=== PATIENT | female | born 1940 | race Caucasian/White ===

== ENCOUNTER 2024-06-02 16:34 | Emergency (ER) | payer BC, MEDICARE, SELFPAY ==
--- NOTE | ~2024-06-02 | CT_ITS ---
CLINICAL HISTORY: fall with head strike CT head without contrast. COMPARISON: None FINDINGS: Scalp edema/hematoma overlying the bridge of the nose and left supraorbital region. The visualized paranasal sinuses are clear. The mastoid air cells are clear. No calvarial fracture. Atherosclerotic intracranial vasculature. No evidence for mass or mass effect. No intracranial hemorrhage or abnormal extra-axial fluid collection. The ventricles are proportional with the degree of mild global cerebral volume loss without evidence of hydrocephalus. Basilar cisterns are patent. There are periventricular areas of low attenuation compatible with mild white matter small vessel disease. Posterior fossa appears unremarkable. IMPRESSION: 1. No acute intracranial findings. This document has been electronically signed by: Elias Negrete MD on 06/02/2024 19:30:13
--- NOTE | ~2024-06-02 | CT_ITS ---
CLINICAL HISTORY: facial trauma CT maxillofacial without contrast. COMPARISON: None FINDINGS: Scalp edema/hematoma overlying the left supraorbital region and bridge of the nose. No evidence of injury to the bony orbits. Globes appear intact bilaterally. No postseptal or retrobulbar hematoma. Nasal bones appear intact. Nasal septum is midline. Paranasal sinuses are clear. Zygomatic process and pterygoid plates are intact. Temporomandibular joints are appropriately seated. Degenerative changes of the bilateral temporomandibular joints, iquj-jhyetxy-sdev-right. Mandible appears intact. Skull base fracture identified. Mastoid air cells are clear. Degenerative changes of the partially visualized cervical spine. Visualized intracranial structures are unremarkable. IMPRESSION: 1. Scalp edema/hematoma overlying the left supraorbital region and bridge of the nose. No evidence of injury to the underlying bones or orbital soft tissues. This document has been electronically signed by: Elias Negrete MD on 06/02/2024 19:32:49
--- NOTE | ~2024-06-02 | XR_ITS ---
CLINICAL HISTORY: trauma Four views of the left knee. COMPARISON: None FINDINGS: Subcutaneous tissue edema overlying the left knee. No suprapatellar joint effusion. Atherosclerotic vascular calcifications. Joint spaces are maintained. Osteophytes present along the medial and patellofemoral compartments. Visualized portions of the distal femur, patella, and proximal tibia and fibula appear intact. IMPRESSION: 1. Subcutaneous soft tissue edema overlying the anterior aspect of the knee. Underlying bones appear intact. This document has been electronically signed by: Elias Negrete MD on 06/02/2024 18:30:56
--- NOTE | ~2024-06-02 | CT_ITS ---
CLINICAL HISTORY: pain s p fall CT cervical spine without contrast. COMPARISON: None FINDINGS: Reversal of normal cervical lordosis. Vertebral body heights are maintained. Skull base and intracranial structures appear normal. Calcified plaque present at the carotid bulbs bilaterally. C2-C3: Facet joint arthrosis. Severe right neural foraminal narrowing. C3-C4: Anterior marginal osteophytes. Posterior disc osteophyte complex.Uncovertebral joint hypertrophy. Facet joint arthrosis. Severe left and mild right neural foraminal narrowing. C4-C5: Prominent anterior marginal osteophytes. Loss of disc space height. Posterior disc osteophyte complex. Uncovertebral joint hypertrophy. Moderate bilateral neural foraminal narrowing. C5-C6: Prominent anterior marginal osteophytes. Loss of disc space height. Posterior disc osteophyte complex. Uncovertebral joint hypertrophy. Severe left moderate right neural foraminal narrowing. C6-C7: Anterior marginal osteophytes. Loss of disc space height. Posterior disc osteophyte complex. Uncovertebral joint hypertrophy. Moderate left and mild right neural foraminal narrowing. IMPRESSION: 1. No evidence of acute injury to the cervical spine. 2. Reversal of the normal cervical lordosis. 3. Advanced multilevel cervical spondylosis. This document has been electronically signed by: Elias Negrete MD on 06/02/2024 19:28:48
--- NOTE | 2024-06-02 16:37 | ED.FALL ---
HPI - Fall General Chief Complaint: Fall Stated Complaint: fell [place] first [place] [employer] Time Seen by Provider: 06/02/24 16:46 Source: patient, RN notes reviewed and old records reviewed Mode of arrival: ambulatory Limitations: no limitations History of Present Illness ED Provider: Abel CHAPPELL Narrative: 83-year-old female with past medical history significant for coronary artery, hypertension presents for evaluation of a fall. Patient reports that she went to go grocery shopping. See the curb and when she went to step up, her foot got caught on the curb and she fell down to the ground. She hit her face and and left knee. She denied any prodrome of lightheadedness, dizziness, weakness prior to her fall. She did not lose consciousness. She complains of a mild headache She takes a baby aspirin daily but does not use any anticoagulation Related Data Allergies Allergy/AdvReac Type Severity Reaction Status Date / Time No Known Allergies Allergy Verified 06/02/24 16:42 Review of Systems Constitutional: Constitutional: Denies body ache(s), Denies chills, Denies fever(s), Denies frequent falls and Reports headache(s) ENT: Denies vertigo, Denies dizziness, Reports headache(s) and Reports neck pain Cardiovascular: Cardiovascular: Denies chest pain and Denies dyspnea Respiratory: Respiratory: Denies cough and Denies dyspnea Gastrointestinal: Gastrointestinal: Denies abdominal pain, Denies nausea and Denies vomiting Musculoskeletal: Musculoskeletal: Denies back pain, Reports arthralgias, Reports joint swelling, Denies limited range of motion and Reports neck pain Neurologic: Denies vertigo, Denies dizziness, Denies frequent falls and Reports headache(s) Psychiatric: Psychiatric: Denies anxiety PMFSH Social History Social History Smoked in Last 30 Days: No Use of substances other than those prescribed or required for medical reasons: No Advance Directives: No Advance Directives Information Provided: No Physical Exam Vital Signs: Vital Signs: Last Vital Signs Temp 97.6 F 06/02/24 16:38 Pulse 88 06/02/24 16:38 Resp 16 06/02/24 16:38 BP 154/81 H 06/02/24 16:38 Pulse Ox 98 06/02/24 16:38 O2 Del Method Room Air 06/02/24 16:38 BMI result Body Mass Index 31.9 Const: General: healthy appearing, comfortable, no acute distress, alert and awake Nutritional Appearance: well nourished Orientation/consciousness: patient oriented x3 HEENT: Other: Patient has edema over the bridge of the nose with a small abrasion. No deep lacerations. There is ecchymosis extending laterally to both periorbital regions. No septal hematoma. Eyes: Eyelids: Yes eyelids normal Conjunctivae: conjunctivae normal Sclerae: sclerae normal Corneas: corneas normal Pupils: Equal, round and reactive pupils present EOM: EOMs intact bilaterally Neck: Other: Patient is in a C-collar Neck: No full ROM Resp: Effort & Inspection: normal respiratory effort, able to speak in complete sentences and not labored Skin: General skin exam: elasticity normal Neuro: General: patient oriented x3 Cranial nerves: Yes CN's II-XII intact bilaterally, Yes Equal, round and reactive pupils present and Yes Bilaterally intact EOM present Cognition (Neuro): normal cognition Course Course Course Narrative: This is a Rapid Medical Examination (RME) performed by Kemal Marquez PA-C in triage. Full HPI, ROS, assessment and treatment plan per primary provider in the Main ED. 83 y/o female with history of HTN, CAD s/p stent, fibromylagia, osteoarthritis, pre-DM who presents to the ER for evaluation after she tripped outside of [employer] in the [place] just prior to arrival. No LOC but felt dizzy afterward. No dizziness or chest pain prior to falling. No history of frequent falls. c/o facial pain, bilateral neck pain with movement, hand pain and left knee pain. Plan: CT head, face and c-spine. placed in cervical collar in triage Medications Administered Discontinued Medications Generic Name Dose Route Start Last Admin Trade Name Freq PRN Reason Stop Dose Admin Acetaminophen 650 mg 06/02/24 17:17 06/02/24 17:20 Acetaminophen 325 Mg Tablet PO 06/02/24 17:18 650 mg ONCE ONE Administration Medical Decision Making Medical Decision Making [facility] Narrative: 83-year-old female presents for evaluation after a fall. She was with her daughter and this was a witnessed fall. The patient accidentally missed the step up to the curb and ended up falling onto the ground. There was no loss of consciousness. We will get a CT scan of her brain, cervical spine, facial bones and x-ray of the left knee. Differential Diagnosis Differential Diagnoses: The differential diagnosis associated with the presentation includes Contusion Abrasion Nasal fracture Fracture Muscle strain Contusion Radiology Impression Discussion of test interpretation with radiology: I have reviewed the radiologist's reading. Radiologist Impression: FINDINGS: Scalp edema/hematoma overlying the left supraorbital region and bridge of the nose. No evidence of injury to the bony orbits. Globes appear intact bilaterally. No postseptal or retrobulbar hematoma. Nasal bones appear intact. Nasal septum is midline. Paranasal sinuses are clear. Zygomatic process and pterygoid plates are intact. Temporomandibular joints are appropriately seated. Degenerative changes of the bilateral temporomandibular joints, [id number]-right. Mandible appears intact. Skull base fracture identified. Mastoid air cells are clear. Degenerative changes of the partially visualized cervical spine. Visualized intracranial structures are unremarkable. IMPRESSION: 1. Scalp edema/hematoma overlying the left supraorbital region and bridge of the nose. No evidence of injury to the underlying bones or orbital soft tissues. This document has been electronically signed by: Elias Negrete MD on 06/02/2024 19:32:49 FINDINGS: Scalp edema/hematoma overlying the bridge of the nose and left supraorbital region. The visualized paranasal sinuses are clear. The mastoid air cells are clear. No calvarial fracture. Atherosclerotic intracranial vasculature. No evidence for mass or mass effect. No intracranial hemorrhage or abnormal extra-axial fluid collection. The ventricles are proportional with the degree of mild global cerebral volume loss without evidence of hydrocephalus. Basilar cisterns are patent. There are periventricular areas of low attenuation compatible with mild white matter small vessel disease. Posterior fossa appears unremarkable. IMPRESSION: 1. No acute intracranial findings. This document has been electronically signed by: Elias Negrete MD on 06/02/2024 19:30:13 FINDINGS: Reversal of normal cervical lordosis. Vertebral body heights are maintained. Skull base and intracranial structures appear normal. Calcified plaque present at the carotid bulbs bilaterally. C2-C3: Facet joint arthrosis. Severe right neural foraminal narrowing. C3-C4: Anterior marginal osteophytes. Posterior disc osteophyte complex.Uncovertebral joint hypertrophy. Facet joint arthrosis. Severe left and mild right neural foraminal narrowing. C4-C5: Prominent anterior marginal osteophytes. Loss of disc space height. Posterior disc osteophyte complex. Uncovertebral joint hypertrophy. Moderate bilateral neural foraminal narrowing. C5-C6: Prominent anterior marginal osteophytes. Loss of disc space height. Posterior disc osteophyte complex. Uncovertebral joint hypertrophy. Severe left moderate right neural foraminal narrowing. C6-C7: Anterior marginal osteophytes. Loss of disc space height. Posterior disc osteophyte complex. Uncovertebral joint hypertrophy. Moderate left and mild right neural foraminal narrowing. IMPRESSION: 1. No evidence of acute injury to the cervical spine. 2. Reversal of the normal cervical lordosis. 3. Advanced multilevel cervical spondylosis. This document has been electronically signed by: Elias Negrete MD on 06/02/2024 19:28:48 Discharge Plan Discharge Clinical Impression: Contusion of face Patient Disposition: Home, Self-Care Instructions: Facial Contusion (ED) Additional Instructions: Your CT scans did not show any broken bones. You do have a hematoma above your left eye and to your knee Apply ice every 4 hours for 10-15 minutes You may use Tylenol or ibuprofen for pain Follow-up with your primary doctor, return for new or worsening symptoms Print Language: Guinean
[2024-06-02 16:38] VITALS: BP 154/81; PULSE 88; RESP 16; TEMP 36.4; O2SAT 98; BMI 31.9
[2024-06-02] MEDS: Acetaminophen 325 MG TABLET 650 MG PO (17:20)
[2024-06-02 20:00] VITALS: BP 125/70; PULSE 73; RESP 18; TEMP 36.6; O2SAT 96
[2024-06-02 23:27] VITALS: BP 125/70; PULSE 73; RESP 18; TEMP 36.6; O2SAT 96
== END 2024-06-02 20:20 | disposition home or self-care (01) ==
PROVIDERS: Emergency Provider Emergency Medicine
DX: S00.83XA Contusion of other part of head, initial encounter (principal); S00.31XA Abrasion of nose, initial encounter; M54.2 Cervicalgia; W10.1XXA Fall (on)(from) sidewalk curb, initial encounter; M25.562 Pain in left knee; Y93.01 Activity, walking, marching and hiking; Y92.480 Sidewalk as the place of occurrence of the external cause; Y99.9 Unspecified external cause status
CPT/HCPCS: 70450; 70486; 72125; 73562; 99284

== ENCOUNTER → 2024-06-02 17:17 | Outpatient (BNV) | payer BC, MEDICARE, SELFPAY | PROVIDERS: Emergency Provider Emergency Medicine; Visit Provider Radiology Diagnostic Radiology | DX: M54.2 Cervicalgia (principal); M47.812 Spondylosis without myelopathy or radiculopathy, cervical region; S00.83XA Contusion of other part of head, initial encounter; M25.562 Pain in left knee; W01.0XXA Fall on same level from slipping, tripping and stumbling without subsequent striking against object, initial encounter | CPT/HCPCS: 70450; 70486; 72125; 73562 ==

== ENCOUNTER 2024-06-04 19:09 | Emergency (ER) | payer BC, MEDICARE, SELFPAY ==
--- NOTE | ~2024-06-04 | CT_ITS ---
CLINICAL HISTORY: trauma CT left knee without intravenous contrast Comparison: CR - XR KNEE LT 3V - 06/02/24 17:29 EDT Findings: Anteromedial subcutaneous hematoma measuring 3.5 x 1.6 x 3.3 cm. Infrapatellar subcutaneous edema. Tricompartmental osteoarthritis. No joint effusion or lipohemarthrosis. No acute fracture or dislocation. Vascular calcifications. IMPRESSION: 1. No acute osseous injury. 2. Anteromedial subcutaneous hematoma measuring 3.5 x 1.6 x 3.3 cm with infrapatellar subcutaneous edema. This document has been electronically signed by: Phillip Landeros MD on 06/04/2024 22:22:17
[2024-06-04 19:19] VITALS: BP 122/84; PULSE 84; O2SAT 97
[2024-06-04 19:20] VITALS: BP 145/68; PULSE 76; RESP 16; TEMP 36.7; O2SAT 97; BMI 32.5
[2024-06-04 20:38] VITALS: BP 121/67; PULSE 75; RESP 18; TEMP 36.7; O2SAT 95
[2024-06-04] MEDS: oxyCODONE HCl Immed Release 5 MG TABLET PO (20:38)
--- NOTE | 2024-06-04 22:02 | ED_ITS ---
HPI - General Adult General Chief complaint: Extremity Problem Stated complaint: fall, knee pain Time Seen by Provider: 06/04/24 19:19 Source: patient, RN notes reviewed and old records reviewed Mode of arrival: EMS Limitations: no limitations History of Present Illness ED Provider: Abel CHAPPELL narrative: 83-year-old female presents for evaluation of left knee pain. Patient was seen here 2 days ago after tripping and falling over a sidewalk. She had a CT scan of her brain and cervical spine, x-ray of the left knee all of the imaging was unremarkable for traumatic injuries. The patient was able to ambulate even this morning. However she reports that her pain is severe, 10/10 and worse with any kind of movement denies any additional falls or trauma Related Data Previous Rx's ?Medication ?Instructions ?Recorded morphine 15 mg immediate release 15 mg PO Q6H PRN severe pain 06/05/24 tablet (scale score 7-10) #12 tabs Allergies Allergy/AdvReac Type Severity Reaction Status Date / Time No Known Allergies Allergy Verified 06/04/24 19:22 Review of Systems Constitutional: Constitutional: Denies body ache(s), Denies chills, Denies fever(s) and Denies headache(s) ENT: Denies headache(s) Musculoskeletal: Musculoskeletal: Reports arthralgias, Reports joint swelling and Reports limited range of motion Integumentary/Breasts: Skin/Breast: Denies rash Neurologic: Denies headache(s) PMFSH Social History Social History Smoked in Last 30 Days: No Use of substances other than those prescribed or required for medical reasons: No Advance Directives: No Advance Directives Information Provided: No Physical Exam ED Vital Signs: Vital Signs - 24 hr 06/04/24 19:20 06/04/24 20:38 06/04/24 23:57 Temperature 98.1 F 98.1 F Pulse Rate 76 75 65 Respiratory Rate 16 18 18 Blood Pressure 145/68 H 121/67 114/65 Pulse Oximetry 97 95 97 Oxygen Delivery Method Room Air Room Air Room Air BMI result Body Mass Index 32.5 Const General: healthy appearing, comfortable, no acute distress, alert and awake Nutritional Appearance: well nourished Orientation/consciousness: patient oriented x3 HENMT Other: patient has raccoon eyes Eyes Eyelids: Yes eyelids normal Conjunctivae: conjunctivae normal Sclerae: sclerae normal Corneas: corneas normal Pupils: Equal, round and reactive pupils present EOM: EOMs intact bilaterally Neck Neck: Yes full ROM Resp Effort & Inspection: normal respiratory effort, able to speak in complete sentences and not labored Skin General skin exam: elasticity normal Neuro General: patient oriented x3 Cranial nerves: Yes Equal, round and reactive pupils present and Yes Bilaterally intact EOM present Cognition (Neuro): normal cognition Extrem Other: there is moderate edema to the left knee with surrounding ecchymosis. No deep wounds or lacerations. The patient is exquisitely tender mostly in his suprapatellar region. She was reduced range of motion Medications Administered Discontinued Medications Generic Name Dose Route Start Last Admin Trade Name Freq PRN Reason Stop Dose Admin Lidocaine HCl 10 ml 06/04/24 23:17 06/05/24 00:41 Lidocaine Hcl 1 % Mpf 5 Ml Vial INFILTRATI 06/04/24 23:18 10 ml ONCE ONE Administration Morphine Sulfate 15 mg 06/05/24 00:21 06/05/24 00:38 Morphine Sulfate Immed Release 15 Mg Tablet PO 06/05/24 00:22 15 mg ONCE ONE Administration Oxycodone HCl 5 mg 06/04/24 20:22 06/04/24 20:38 Oxycodone Hcl Immed Release 5 Mg Tablet PO 06/04/24 20:23 5 mg ONCE ONE Administration Procedures Procedure Narrative Procedure Narrative: patient was identified, left knee was prepped and draped in his sterile fashion. I used 5 cc of 1% lidocaine to locally anesthetize the left knee. I then inserted an 18 gauge needle and aspirated. Approximately 4 cc of bloody aspirate the medial aspect of the left knee. the patient tolerated the procedure well, there were no complications. Medical Decision Making Medical Decision Making [facility]DM Narrative: 83-year-old female presents for evaluation of continued and worsening left knee pain after a fall 2 days ago. She had no additional trauma. She was obvious ecchymosis. She has been able to walk up until today. Plan for CT scan to evaluate for occult fracture. Differential Diagnosis Differential Diagnoses: The differential diagnosis associated with the presentation includes Left knee pain Contusion Tibial plateau fracture Patellar fracture Ligamentous injury Radiology Impression Discussion of test interpretation with radiology: I have reviewed the radiologist's reading. Radiologist Impression: Findings: Anteromedial subcutaneous hematoma measuring 3.5 x 1.6 x 3.3 cm. Infrapatellar subcutaneous edema. Tricompartmental osteoarthritis. No joint effusion or lipohemarthrosis. No acute fracture or dislocation. Vascular calcifications. IMPRESSION: 1. No acute osseous injury. 2. Anteromedial subcutaneous hematoma measuring 3.5 x 1.6 x 3.3 cm with infrapatellar subcutaneous edema. This document has been electronically signed by: Phillip Landeros MD on 06/04/2024 22:22:17 Discharge Plan Discharge Clinical Impression: Hematoma of left knee region Patient Disposition: Home, Self-Care Instructions: Contusion in Adults (ED) Additional Instructions: you may use ibuprofen / Tylenol as needed for pain. The CT scan did not show any significant traumatic injuries to your left knee. You do have a hematoma. This was partially aspirated I recommend that you follow-up with orthopedics at the number provided. You may benefit from an outpatient MRI you may use morphine for severe breakthrough pain. This may make you drowsy, do not drink alcohol or drive after taking it Prescriptions: New morphine 15 mg tablet 15 mg PO Q6H PRN (Reason: severe pain (scale score 7-10)) Qty: 12 0RF Rx Instructions: Partial Fill upon patient request. Referrals: Misha Pierre MD [Physician] - (left knee pain) Print Language: Tamazight
[2024-06-04 23:57] VITALS: BP 114/65; PULSE 65; RESP 18; O2SAT 97
[2024-06-05] MEDS: Morphine Sulfate Immed Release 15 MG TABLET PO (00:38)
[2024-06-05] MEDS: Lidocaine HCl 1 % MPF 5 ML VIAL 10 ML INFILTRATI (00:41)
[2024-06-05 01:24] VITALS: BP 97/61; PULSE 71; RESP 16; TEMP 36.3; O2SAT 97
[2024-06-05 01:38] VITALS: BP 97/61; PULSE 71; RESP 16; TEMP 36.3; O2SAT 97
== END 2024-06-05 01:40 | disposition home or self-care (01) ==
PROVIDERS: Emergency Provider Emergency Medicine; PCP Internal Medicine
DX: S80.02XA Contusion of left knee, initial encounter (principal); W19.XXXA Unspecified fall, initial encounter; Y93.9 Activity, unspecified; Y92.9 Unspecified place or not applicable; Y99.9 Unspecified external cause status; M25.562 Pain in left knee
CPT/HCPCS: 73700; 99284; J2003

== ENCOUNTER → 2024-06-04 20:22 | Outpatient (BNV) | payer BC, MEDICARE, SELFPAY | PROVIDERS: PCP Internal Medicine; Visit Provider Radiology Diagnostic Radiology | DX: M25.562 Pain in left knee (principal); S80.02XA Contusion of left knee, initial encounter | CPT/HCPCS: 73700 ==

== ENCOUNTER 2024-06-20 13:00 | Outpatient (AMB) | payer BC, MEDICARE, SELFPAY ==
--- NOTE | 2024-06-20 13:03 | MHC.OFFVIS ---
Vital Signs 06/20/24 13:21 Height 5 ft 3 in Weight 184 lb BMI 32.6 Handedness Right Intake Visit Reasons: ED - left knee swelling, DOI 06/02/24 Intake Note: Harper is a 84 year old female who presents today for a evaluation of her left knee swelling, DOI 06/02/24. Patient reports she tripped and fell over a sidewalk. She had a sharp stabbing pain in her knee. Patient reports she is feeling some tightness and numbness since the injury. She states that her pain is focused on top of the knee. Hx of drainage at the ED which gave her relief on 06/04/24. IMPRESSION (x ray): 1. Subcutaneous soft tissue edema overlying the anterior aspect of the knee. Underlying bones appear intact. IMPRESSION (CT scan): 1. No acute osseous injury. 2. Anteromedial subcutaneous hematoma measuring 3.5 x 1.6 x 3.3 cm with infrapatellar subcutaneous edema. Allergies No Known Allergies Allergy (Verified 06/20/24 13:09) HPI HPI ED - left knee swelling, DOI 06/02/24: Details: The patient is an 84-year-old female presenting for a follow-up visit after sustaining a left knee injury due to a trip and fall on 06/02/24 landing directly on the knee. She also sustained an abrasion over the anterior aspect of the patella. Following this traumatic event, she went to the emergency department where imaging showed no acute fractures or dislocations, but an anterior medial subcutaneous hematoma was identified. An aspiration at that visit yielded only a small volume of bloody aspirate. Despite this intervention, the patient experienced severe and sharp knee pain within two days, returning to the emergency department. The knee hematoma eventually became infected, and her primary care doctor started her on Augmentin, which has been effective as the infection is showing signs of resolution. The patient expresses that the hematoma has reduced in size but remains noticeable, and the area's redness, although decreased, persists. She reports adhering to her primary physician's advice regarding local care of the hematoma. [facility] Social History (Updated 06/20/24 @ 13:20 by Main Morelos) Alcohol intake: current Alcohol intake frequency: holidays/special occasions only Alcohol type: wine Patient Tobacco Use Status: Never used Tobacco Current occupational status: retired Review of Systems Const All systems reviewed & are unremarkable except as noted in HPI and below Physical Exam Vital Signs: BMI result Body Mass Index 32.6 Const General: cooperative, healthy appearing and no acute distress Resp Effort & Inspection: normal respiratory effort and able to speak in complete sentences Cardio Peripheral pulses: Peripheral pulses 2+ throughout Skin Lesions: no lesions Rashes: no rashes Extrem Other: Left knee: Moderate hematoma. Abrasion over the anterior aspect of the patella has healthy eschar tissue. Mild erythema surrounds the area. Weeping serosanguineous fluid. No evidence of infection at this time. No tenderness to palpation along the medial or lateral joint lines. Full knee extension and flexion. NVI. Assessment & Plan Assessment & Plan (1) Contusion of knee, left: Code(s): S80.02XA - Contusion of left knee, initial encounter Category: Medical Plan The treatment plan for the patient?s left knee hematoma centers on observation and symptom management since imaging showed no fracture. The previously infected hematoma, successfully treated with Augmentin, has improved. With antibiotic therapy concluding today, ongoing watchfulness for infection reoccurrence is essential. Continued local care of the knee involving soap and water cleansing is recommended. Follow-up is planned for one week to assess the knee's recovery and determine if any adjustments to care are needed. The patient appreciated the information provided and consented to return for the follow-up as discussed. I also advised her to urgently contact my office if symptoms worsen. X-rays of the left knee which were obtained in the emergency department on 06/02/2024 were reviewed by me, Merle Martinez PA-C, revealed no acute fracture dislocation. Moderate subcu soft tissue edema anterior aspect of the knee. CT scan obtained on 06/04/2024: IMPRESSION: 1. No acute osseous injury. 2. Anteromedial subcutaneous hematoma measuring 3.5 x 1.6 x 3.3 cm with infrapatellar subcutaneous edema. Patient was informed and verbally consented to the use of an ambient scribe for clinic note documentation during this visit. Medications: Discontinued morphine Partial Fill upon patient request. Discontinued Reason: Patient no longer taking 15 mg PO Q6H PRN 12 tabs 0RF severe pain (scale score 7-10) Coding Level of Care Code New Pt Level 3 (77366) Diagnoses Contusion of knee, left S80.02XA
[2024-06-20 13:21] VITALS: BMI 32.6
--- OUTSIDE RECORDS SUMMARY | 2024-06-20 14:11 | XMS_ITS | Data Portability ---
Author Organization [facility], , [facility] Address [address] [place] [address] Care Team Providers Care Sand Tester Name Role Phone MONTEZ SALAZAR Primary Care Provider ESSENCE RASMUSSEN Primary Care Provider Unavailabl e Assessment No assessment recorded. Plan of Treatment Reminders Order Date Submit Date Provider Last Modified By Organization Details Last Modified Time Details Appointments None recorde d. Lab fecal occult blood, stool 2014 015 [facility], [address] [place] [address], [address], 5 12:04:03 fecal occult blood, stool 2014 015 [facility], [address] [place] [address], [address], 5 12:04:14 giardia lamblia Ag, stool 2014 015 [facility], [address] [place] [address], [address], 5 15:43:57 wbc, stool 2014 015 [facility], [address] [place] [address], [address], 5 15:43:57 O&P (ova & parasit es), stool 2014 015 [facility], [address] [place] [address], [address], 5 12:18:22 CBC 2014 015 [facility], [address] [place] [address], 56[address], 5 12:09:31 CMP, serum or plasma 2014 015 [facility], [address] [place] [address], [address]184, 5 12:09:31 CMP, serum or plasma 2014 015 [facility], [address] [place] [address], [address], 5 11:13:02 CBC 2014 015 [facility], [address] [place] [address], [address], 5 11:35:52 Referral None recorde d. Procedures None recorde d. Surgeries None recorde d. Imaging exercis e stress test - 75yo F w/ HTN w/ CP w/ exertio n/hold amlodip ine 48 hrs prior 2015 016 [facility], [address], [place], [address], 6 09:36:57 ultraso und, abdomin al - chills N ausea and diarrhe a. 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 Patient Instructions Encounter Date Encounter Id Patient Instructions Last Modified By Organization Details Last Modified Time 05/01/2014 [id number] 1. saline garlges, saline nasal spray, acetaminophen as needed for fever or pain, increase fluids, rest, avoid sick contacts, frequent hand washing. Return to clinic if worse or persistent. 2. start azithromycin and finish course, will take probiotic 3. over the counter mucinex and nyquil at night 4. f/u with PCP. next week if not better. kimberlee Not available 05/01/2014 17:30:32 08/13/2014 [id number] high blood pressure: care instructions dexter Not available 08/14/2014 15:49:49 learning about high blood pressure dexter Not available 08/14/2014 15:49:49 After a discussion of treatment options, which included consideration of best practices and patient preferences, the following treatment plan and objectives were adopted: fernando Not available 08/13/2014 11:12:53 MAKE AN AP[address]MENT WITH DR. MISHRA FOR IN A MONTH OR 2. ? ? ?CALL IF YOUR SYMPTOMS WORSEN BEFORE THEN. fernando Not available 08/13/2014 11:15:57 02/19/2015 [id number] advance directives: care instructions cristina Not available 02/23/2015 08:09:25 preventing falls: care instructions tsuddaslade Not available 02/23/2015 08:09:25 hearing loss: care instructions tsuddaslade Not available 02/23/2015 08:09:25 well visit, over 65: care instructions cristina Not available 02/23/2015 08:09:25 08/19/2015 [id number] high blood pressure: care instructions fernando Not available 08/20/2015 11:06:25 learning about high blood pressure fernando Not available 08/20/2015 11:06:25 MAKE AN OFFICE VISIT APPOINTMENT WITH DR GALAVIZ TO DISCUSS YOUR RECENT SYMPTOMS. MAKE AN APPOINTMENT FOR A STRESS TEST: [phone] yperry Not available 08/19/2015 10:05:59 CCM: The provider and patient discussed the Chronic Care Management program, including the services provided, and any fees associated with them. yperry Not available 08/20/2015 11:06:25 Reason for Referral None Reported. Results Created Date Observation Date Name Description Value Unit Range Abnormal Flag Note LastModifiedBy Organization Detail LastModifiedTime 07/09/19 15 07/08/2014 CMP, serum or plasm a glucose 111 mg/dL 70-100 high Not Available [address], [address], 07/08/2014 11:13:02 07/09/19 15 07/08/2014 CMP, serum or plasm a BUN 14 mg/dL 7-18 Not Available [address], [address], 07/08/2014 11:13:02 07/09/19 15 07/08/2014 CMP, serum or plasm a creatinine 0.9 mg/dL 0.8-1. 3 Not Available [address], [address]2456, 07/08/2014 11:13:02 07/09/19 15 07/08/2014 CMP, serum or plasm a B/C 15.6 ratio Not Available [address], 235[address], 07/08/2014 11:13:02 07/09/19 15 07/08/2014 CMP, serum or plasm a GFR 68.9 mL/mi n Recom kati d GFR by the Natio nal Kidne y Found ation >60 mL/mi n/1.7 3m2 - Viviana l <60 mL/mi n/1.7 3m2 - Chron ic Kidne y Disea se <15 mL/mi n/1.7 3m2 - Kidne y Failu re Not Available [address], [address], 07/08/2014 11:13:02 07/09/19 15 07/08/2014 CMP, serum or plasm a GFR - if 79.3 mL/mi n For Afric an Ameri can patie nts: Resul ts Multi plied by 1.21 Not Available [address], 87766, 07/08/2014 11:13:02 07/09/19 15 07/08/2014 CMP, serum or plasm a sodium 143 mmol/ L 136-14 5 Not Available [address], 65159, 07/08/2014 11:13:02 07/09/19 15 07/08/2014 CMP, serum or plasm a potassium 3.7 mmol/ L 3.5-5. 1 Not Available [address], 75061, 07/08/2014 11:13:02 07/09/19 15 07/08/2014 CMP, serum or plasm a chloride 106 mmol/ L 96-107 Not Available [address], 25597, 07/08/2014 11:13:02 07/09/19 15 07/08/2014 CMP, serum or plasm a anion gap 10.2 5.0-15 .0 Not Available [address], 67237, 07/08/2014 11:13:02 07/09/19 15 07/08/2014 CMP, serum or plasm a CO2 27 mmol/ L 21-32 Not Available [address], 09798, 07/08/2014 11:13:02 07/09/19 15 07/08/2014 CMP, serum or plasm a calcium 9.0 mg/dL 8.5-10 .3 Not Available [address], 74650, 07/08/2014 11:13:02 07/09/19 15 07/08/2014 CMP, serum or plasm a total protein 6.1 g/dL 6.4-8. 2 low Not Available [address], 27165, 07/08/2014 11:13:02 07/09/19 15 07/08/2014 CMP, serum or plasm a albumin 3.2 g/dL 3.4-5. 0 low Not Available [address], 91865, 07/08/2014 11:13:02 07/09/19 15 07/08/2014 CMP, serum or plasm a globulin 2.9 g/dL Not Available [address], 34886, 07/08/2014 11:13:02 07/09/19 15 07/08/2014 CMP, serum or plasm a A/G 1.1 ratio 0.8-2. 0 Not Available [address], 38706, 07/08/2014 11:13:02 07/09/19 15 07/08/2014 CMP, serum or plasm a total bilirubin 0.70 mg/dL 0.00-1 .00 Not Available [address], 23125, 07/08/2014 11:13:02 07/09/19 15 07/08/2014 CMP, serum or plasm a AST 40 U/L 15-37 high Not Available [address], 79844, 07/08/2014 11:13:02 07/09/19 15 07/08/2014 CMP, serum or plasm a ALT 126 U/L 30-65 high Not Available [address], 06534, 07/08/2014 11:13:02 07/09/19 15 07/08/2014 CMP, serum or plasm a alk. phos. 192 U/L 50-136 high Not Available [address], 85983, 07/08/2014 11:13:02 07/09/19 15 07/08/2014 chucky bryson [facility] t, serum or plasm a direct bilirubin 0.20 mg/dL 0.00-0 .30 Not Available [address], 20839, 07/08/2014 11:13:03 07/09/19 15 07/08/2014 kevin jiménez, blood segs 60 % Not Available [address], 32318, 07/08/2014 11:35:05 07/09/19 15 07/08/2014 kevin jiménez, blood bands 4 % Not Available [address], 69623, 07/08/2014 11:35:05 07/09/19 15 07/08/2014 kevin jiménez, blood lymph 20 % Not Available [address], 91398, 07/08/2014 11:35:05 07/09/19 15 07/08/2014 kevin jiménez, blood mono 6 % Not Available [address], 96968, 07/08/2014 11:35:05 07/09/19 15 07/08/2014 kevin jiménez, blood eosin 7 % Not Available [address], 53691, 07/08/2014 11:35:05 07/09/19 15 07/08/2014 kevin jiménez, blood cornelia. lymph 3 % 0-10 Not Available [address], 32098, 07/08/2014 11:35:05 07/09/19 15 07/08/2014 CBC WBC 6.9 K/? ? ?L 4.0-10 .0 Not Available [address], 04046, 07/08/2014 11:35:52 07/09/19 15 07/08/2014 CBC RBC 4.52 M/? ? ?L 3.93-5 .22 Not Available [address], 20358, 07/08/2014 11:35:52 07/09/19 15 07/08/2014 CBC HGB 13.2 g/dL 11.2-1 5.7 Not Available [address], 69537, 07/08/2014 11:35:52 07/09/19 15 07/08/2014 CBC HCT 39.9 % 34.1-4 4.9 Not Available [address], 53464, 07/08/2014 11:35:52 07/09/19 15 07/08/2014 CBC MCV 88.3 ? ? ?L 79.4-9 4.8 Not Available [address], 98454, 07/08/2014 11:35:52 07/09/19 15 07/08/2014 CBC MCH 29.2 pg 25.6-3 2.2 Not Available [address], 60978, 07/08/2014 11:35:52 07/09/19 15 07/08/2014 CBC MCHC 33.1 g/dL 32.2-3 5.5 Not Available [address], 90257, 07/08/2014 11:35:52 07/09/19 15 07/08/2014 CBC plt 198.0 K/? ? ?L 182.0- 369.0 Not Available [address], 08536, 07/08/2014 11:35:52 07/09/19 15 07/08/2014 CBC MPV 11.0 9.4-12 .3 Not Available [address], 50087, 07/08/2014 11:35:52 07/09/19 15 07/08/2014 CBC neut% 65.8 % 34.0-7 1.1 Not Available [address], 93810, 07/08/2014 11:35:52 07/09/19 15 07/08/2014 CBC neut# 4.5 1.6-6. 1 Not Available [address], 96431, 07/08/2014 11:35:52 07/09/19 15 07/08/2014 CBC lymph % 20.8 % 19.3-5 1.7 Not Available [address], 20072, 07/08/2014 11:35:52 07/09/19 15 07/08/2014 CBC lymph # 1.4 K/? ? ?L 1.2-3. 7 Not Available [address], 39053, 07/08/2014 11:35:52 07/09/19 15 07/08/2014 CBC mono% 9.5 % 4.7-12 .5 Not Available [address], 37859, 07/08/2014 11:35:52 07/09/19 15 07/08/2014 CBC mono# 0.7 0.2-0. 4 high Not Available [address], 42631, 07/08/2014 11:35:52 07/09/19 15 07/08/2014 CBC eo% 3.6 % 0.7-5. 8 Not Available [address], 14401, 07/08/2014 11:35:52 07/09/19 15 07/08/2014 CBC eo# 0.3 0.0-0. 4 Not Available [address], 54527, 07/08/2014 11:35:52 07/09/19 15 07/08/2014 CBC baso% 0.3 % 0.1-1. 2 Not Available [address], 21543, 07/08/2014 11:35:52 07/09/19 15 07/08/2014 CBC baso# 0.0 0.0-0. 1 low Not Available [address], 28320, 07/08/2014 11:35:52 07/09/19 15 07/08/2014 CBC RDW-CV 13.9 % 11.7-1 4.4 Not Available [address], 02129, 07/08/2014 11:35:52 07/28/19 15 07/28/2014 hepat ic funct ion panel , serum total protein 6.2 g/dL 6.4-8. 2 low Not Available [address], 47500, 07/28/2014 12:28:53 07/28/19 15 07/28/2014 hepat ic funct ion panel , serum albumin 3.5 g/dL 3.4-5. 0 Not Available [address], 07683, 07/28/2014 12:28:53 07/28/19 15 07/28/2014 hepat ic funct ion panel , serum globulin 2.7 g/dL Not Available [address], 25264, 07/28/2014 12:28:53 07/28/19 15 07/28/2014 hepat ic funct ion panel , serum A/G 1.3 ratio 0.8-2. 0 Not Available [address], 50635, 07/28/2014 12:28:53 07/28/19 15 07/28/2014 hepat ic funct ion panel , serum total bilirubin 0.60 mg/dL 0.00-1 .00 Not Available [address], 81788, 07/28/2014 12:28:53 07/28/19 15 07/28/2014 hepat ic funct ion panel , serum direct bilirubin 0.10 mg/dL 0.00-0 .30 Not Available [address], 25068, 07/28/2014 12:28:53 07/28/19 15 07/28/2014 hepat ic funct ion panel , serum AST 19 U/L 15-37 Not Available [address], 68767, 07/28/2014 12:28:53 07/28/19 15 07/28/2014 hepat ic funct ion panel , serum ALT 30 U/L 30-65 Not Available [address], 76596, 07/28/2014 12:28:53 07/28/19 15 07/28/2014 hepat ic funct ion panel , serum alk. phos. 112 U/L 50-136 Not Available [address], 81597, 07/28/2014 12:28:53 07/28/19 15 07/28/2014 lipid panel , serum cholesterol 211 mg/dL <200 mg/dl Meera able 200-2 39 mg/dl Borde rline High >240 mg/dl High Not Available [address], 84778, 07/28/2014 12:28:54 07/28/19 15 07/28/2014 lipid panel , serum triglyceride s 116 mg/dL <150 mg/dL Viviana l 150-1 99 mg/dL Borde rline High 200-4 99 mg/dL High >500 mg/dL Very High Not Available [address], 06705, 07/28/2014 12:28:54 07/28/19 15 07/28/2014 lipid panel , serum direct HDL 58 mg/dL Not Available [address], 24269, 07/28/2014 12:28:54 07/28/19 15 07/28/2014 LDL, kamran aguilar , serum (OBS) LDL - calculated 129.8 RISK CATEG ORY LDL GOAL _ CHD or CHD Risk Equiv alent s <100 mg/dl (10-y ear risk >20%) 2+ Risk Facto rs <130 mg/dl (10-y ear risk <= 20%) 0-1 Risk Facto r? <160 mg/dl ? Almos t all peopl e with 0-1 risk facto r have a 10 year risk <10%, thus 10 year risk asses ment in peopl e with 0-1 risk facto r is not neces adán. Not Available [address], [address], 07/28/2014 12:28:55 08/14/19 15 08/13/2014 CBC WBC 7.4 K/? ? ?L 4.0-10 .0 Not Available [address], 52004, 08/13/2014 14:58:37 08/14/19 15 08/13/2014 CBC RBC 4.68 M/? ? ?L 3.93-5 .22 Not Available [address], 14369, 08/13/2014 14:58:37 08/14/19 15 08/13/2014 CBC HGB 13.5 g/dL 11.2-1 5.7 Not Available [address], 07668, 08/13/2014 14:58:37 08/14/19 15 08/13/2014 CBC HCT 41.9 % 34.1-4 4.9 Not Available [address], 79210, 08/13/2014 14:58:37 08/14/19 15 08/13/2014 CBC MCV 89.5 ? ? ?L 79.4-9 4.8 Not Available [address], 57952, 08/13/2014 14:58:37 08/14/19 15 08/13/2014 CBC MCH 28.8 pg 25.6-3 2.2 Not Available [address], 46011, 08/13/2014 14:58:37 08/14/19 15 08/13/2014 CBC MCHC 32.2 g/dL 32.2-3 5.5 Not Available [address], 72417, 08/13/2014 14:58:37 08/14/19 15 08/13/2014 CBC plt 245.0 K/? ? ?L 182.0- 369.0 Not Available [address], 68262, 08/13/2014 14:58:37 08/14/19 15 08/13/2014 CBC MPV 11.1 9.4-12 .3 Not Available [address], 15973, 08/13/2014 14:58:37 08/14/19 15 08/13/2014 CBC neut% 62.3 % 34.0-7 1.1 Not Available [address], 79100, 08/13/2014 14:58:37 08/14/19 15 08/13/2014 CBC neut# 4.6 1.6-6. 1 Not Available [address], 73790, 08/13/2014 14:58:37 08/14/19 15 08/13/2014 CBC lymph % 24.4 % 19.3-5 1.7 Not Available [address], 94701, 08/13/2014 14:58:37 08/14/19 15 08/13/2014 CBC lymph # 1.8 K/? ? ?L 1.2-3. 7 Not Available [address], 71153, 08/13/2014 14:58:37 08/14/19 15 08/13/2014 CBC mono% 8.4 % 4.7-12 .5 Not Available [address], 29200, 08/13/2014 14:58:37 08/14/19 15 08/13/2014 CBC mono# 0.6 0.2-0. 4 high Not Available [address], 13868, 08/13/2014 14:58:37 08/14/19 15 08/13/2014 CBC eo% 4.4 % 0.7-5. 8 Not Available [address], 69607, 08/13/2014 14:58:37 08/14/19 15 08/13/2014 CBC eo# 0.3 0.0-0. 4 Not Available [address], 63542, 08/13/2014 14:58:37 08/14/19 15 08/13/2014 CBC baso% 0.5 % 0.1-1. 2 Not Available [address], 35728, 08/13/2014 14:58:37 08/14/19 15 08/13/2014 CBC baso# 0.0 0.0-0. 1 low Not Available [address], 06557, 08/13/2014 14:58:37 08/14/19 15 08/13/2014 CBC RDW-CV 14.2 % 11.7-1 4.4 Not Available [address], 34787, 08/13/2014 14:58:37 08/14/19 15 08/13/2014 CMP, serum or plasm a glucose 95 mg/dL 70-100 Not Available [address], 75249, 08/13/2014 15:51:16 08/14/19 15 08/13/2014 CMP, serum or plasm a BUN 19 mg/dL 7-18 high Not Available [address], 59909, 08/13/2014 15:51:16 08/14/19 15 08/13/2014 CMP, serum or plasm a creatinine 0.8 mg/dL 0.8-1. 3 Not Available [address], 76596, 08/13/2014 15:51:16 08/14/19 15 08/13/2014 CMP, serum or plasm a B/C 23.8 ratio Not Available [address], 09851, 08/13/2014 15:51:16 08/14/19 15 08/13/2014 CMP, serum or plasm a GFR 79.0 mL/mi n Recom kati d GFR by the Natio nal Kidne y Found ation >60 mL/mi n/1.7 3m2 - Viviana l <60 mL/mi n/1.7 3m2 - Chron ic Kidne y Disea se <15 mL/mi n/1.7 3m2 - Kidne y Failu re Not Available [address], 82929, 08/13/2014 15:51:16 08/14/19 15 08/13/2014 CMP, serum or plasm a GFR - if 90.8 mL/mi n For Afric an Ameri can patie nts: Resul ts Multi plied by 1.21 Not Available [address] [place], [address], 08/13/2014 15:51:16 08/14/19 15 08/13/2014 CMP, serum or plasm a sodium 142 mmol/ L 136-14 5 Not Available [address], 80924, 08/13/2014 15:51:16 08/14/19 15 08/13/2014 CMP, serum or plasm a potassium 4.4 mmol/ L 3.5-5. 1 Not Available [address], 21154, 08/13/2014 15:51:16 08/14/19 15 08/13/2014 CMP, serum or plasm a chloride 105 mmol/ L 96-107 Not Available [address], 37018, 08/13/2014 15:51:16 08/14/19 15 08/13/2014 CMP, serum or plasm a anion gap 10.4 5.0-15 .0 Not Available [address], 24176, 08/13/2014 15:51:16 08/14/1908/13/2014 CMP, serum or plasm a CO2 27 mmol/ L 21-32 Not Available [address], 33588, 08/13/2014 15:51:16 08/14/1908/13/2014 CMP, serum or plasm a calcium 9.5 mg/dL 8.5-10 .3 Not Available [address], 98118, 08/13/2014 15:51:16 08/14/1908/13/2014 CMP, serum or plasm a total protein 6.5 g/dL 6.4-8. 2 Not Available [address], 83248, 08/13/2014 15:51:16 08/14/1908/13/2014 CMP, serum or plasm a albumin 3.7 g/dL 3.4-5. 0 Not Available [address], 34066, 08/13/2014 15:51:16 08/14/19 15 08/13/2014 CMP, serum or plasm a globulin 2.8 g/dL Not Available [address], 57448, 08/13/2014 15:51:16 08/14/19 15 08/13/2014 CMP, serum or plasm a A/G 1.3 ratio 0.8-2. 0 Not Available [address], 06851, 08/13/2014 15:51:16 08/14/1908/13/2014 CMP, serum or plasm a total bilirubin 0.50 mg/dL 0.00-1 .00 Not Available [address], 41643, 08/13/2014 15:51:16 08/14/1908/13/2014 CMP, serum or plasm a AST 17 U/L 15-37 Not Available [address], 84065, 08/13/2014 15:51:16 08/14/19 15 08/13/2014 CMP, serum or plasm a ALT 29 U/L 30-65 low Not Available [address], 62714, 08/13/2014 15:51:16 08/14/1908/13/2014 CMP, serum or plasm a alk. phos. 116 U/L 50-136 Not Available [address], 78715, 08/13/2014 15:51:16 08/19/19 15 08/21/2014 wbc, stool fecal leukocyte stain FECAL LEUKO CYTE STAIN MICRO NUMBE R: [id number] TEST STATU S: FINAL SPECI MEN SOURC E: STOOL SPECI MEN QUALI TY: ADEQU ATE FECAL LEUKO CYTE: Not Detec libia Not Available [facility] [address], [place], [address], 08/21/2014 15:43:57 08/19/19 15 08/21/2014 giard ia lambl ia Ag, stool giardia Ag, EIA, stool GIARD IA AG, EIA, STOOL MICRO NUMBE R: [id number] TEST STATU S: FINAL SPECI MEN SOURC E: STOOL SPECI MEN QUALI TY: ADEQU ATE RESUL T 1: Not Detec libia Not Available [facility] [address], [place], [address], 08/21/2014 15:43:57 08/20/19 15 08/21/2014 fecal occul t blood , immun oassa y, stool ifobt NEGATI VE negati ve Not Available [address], [place], [address], 08/21/2014 09:05:24 08/20/19 15 08/22/2014 O&P (ova & chloe ites) , stool ova and parasites, stool conc and perm smear OVA AND CHLOE ITES, STOOL CONC AND PERM SMEAR MICRO NUMBE R: [id number] TEST STATU S: FINAL SPECI MEN SOURC E: STOOL SPECI MEN QUALI TY: ADEQU ATE BERNIE NTRAT ION 1: No ova or chloe ites seen TRICH SG 1: No ova or chloe ites seen One negat nely sampl e does not neces saril y rule out the prese nce of a chloe itic infec tion. Routi ne Ova and Chloe ite exam may not detec t some chloe ites that occas ional ly cause diarr heal illne ss. Test code( s) 25482 X (Cryp tospo ridiu m Ag., DFA) and/o r 73498 X (Cycl ospor a and Isosp ora Exam) may be order ed to detec t these chloe ites. Not Available [facility] [address], [place], [address], 08/22/2014 12:18:22 08/21/19 15 08/21/2014 fecal occul t blood , immun oassa y, stool ifobt NEGATI VE negati ve Not Available [address], [address], 08/21/2014 09:05:22 02/10/20 15 02/09/2015 CMP, serum or plasm a glucose 110 mg/dL 70-100 high Not Available [address], 93563, 02/09/2015 17:17:07 02/10/20 15 02/09/2015 CMP, serum or plasm a BUN 19 mg/dL 7-18 high Not Available [address], 59849, 02/09/2015 17:17:07 02/10/20 15 02/09/2015 CMP, serum or plasm a creatinine 0.7 mg/dL 0.8-1. 3 low Not Available [address], 14006, 02/09/2015 17:17:07 02/10/20 15 02/09/2015 CMP, serum or plasm a B/C 27.1 ratio Not Available [address], 87720, 02/09/2015 17:17:07 02/10/20 15 02/09/2015 CMP, serum or plasm a GFR -non 92.1 mL/mi n Recom kati d GFR by the Natio nal Kidne y Found ation >60 mL/mi n/1.7 3m2 - Viviana l <60 mL/mi n/1.7 3m2 - Chron ic Kidne y Disea se <15 mL/mi n/1.7 3m2 - Kidne y Failu re Not Available [address], [address], 02/09/2015 17:17:07 02/10/20 15 02/09/2015 CMP, serum or plasm a GFR - if 105.9 mL/mi n For Afric an Ameri can patie nts: Resul ts Multi plied by 1.21 Not Available [address], 25014, 02/09/2015 17:17:07 02/10/20 15 02/09/2015 CMP, serum or plasm a sodium 145 mmol/ L 136-14 5 Not Available [address], 90761, 02/09/2015 17:17:07 02/10/20 15 02/09/2015 CMP, serum or plasm a potassium 4.4 mmol/ L 3.5-5. 1 Not Available [address], 61754, 02/09/2015 17:17:07 02/10/20 15 02/09/2015 CMP, serum or plasm a chloride 106 mmol/ L 96-107 Not Available [address], 08085, 02/09/2015 17:17:07 02/10/20 15 02/09/2015 CMP, serum or plasm a anion gap 10.4 5.0-15 .0 Not Available [address], 73736, 02/09/2015 17:17:07 02/10/20 15 02/09/2015 CMP, serum or plasm a CO2 29 mmol/ L 21-32 Not Available [address], 46117, 02/09/2015 17:17:07 02/10/20 15 02/09/2015 CMP, serum or plasm a calcium 9.1 mg/dL 8.5-10 .3 Not Available [address], 70256, 02/09/2015 17:17:07 02/10/20 15 02/09/2015 CMP, serum or plasm a total protein 6.6 g/dL 6.4-8. 2 Not Available [address], 74702, 02/09/2015 17:17:07 02/10/20 15 02/09/2015 CMP, serum or plasm a albumin 3.7 g/dL 3.4-5. 0 Not Available [address], 67208, 02/09/2015 17:17:07 02/10/20 15 02/09/2015 CMP, serum or plasm a globulin 2.9 g/dL Not Available [address], 60794, 02/09/2015 17:17:07 02/10/20 15 02/09/2015 CMP, serum or plasm a A/G 1.3 ratio 0.8-2. 0 Not Available [address], 63186, 02/09/2015 17:17:07 02/10/20 15 02/09/2015 CMP, serum or plasm a total bilirubin 0.40 mg/dL 0.00-1 .00 Not Available [address], 63462, 02/09/2015 17:17:07 02/10/20 15 02/09/2015 CMP, serum or plasm a AST 21 U/L 15-37 Not Available [address], 04253, 02/09/2015 17:17:07 02/10/20 15 02/09/2015 CMP, serum or plasm a ALT 38 U/L 30-65 Not Available [address], 92443, 02/09/2015 17:17:07 02/10/20 15 02/09/2015 CMP, serum or plasm a alk. phos. 112 U/L 50-136 Not Available [address], [address], 02/09/2015 17:17:07 02/10/20 15 02/09/2015 lipid panel , serum cholesterol 214 mg/dL <200 mg/dl Meera able 200-2 39 mg/dl Borde rline High >240 mg/dl High Not Available [address], [address], 02/09/2015 17:17:08 02/10/20 15 02/09/2015 lipid panel , serum triglyceride s 152 mg/dL <150 mg/dL Viviana l 150-1 99 mg/dL Borde rline High 200-4 99 mg/dL High >500 mg/dL Very High Not Available [address], [address], 02/09/2015 17:17:08 02/10/20 15 02/09/2015 lipid panel , serum direct HDL 57 mg/dL Not Available [address], [address], 02/09/2015 17:17:08 02/10/20 15 02/09/2015 LDL, calcu lauren , serum (OBS) LDL - calculated 126.6 RISK CATEG ORY LDL GOAL _ CHD or CHD Risk Equiv alent s <100 mg/dl (10-y ear risk >20%) 2+ Risk Facto rs <130 mg/dl (10-y ear risk <= 20%) 0-1 Risk Facto r? <160 mg/dl ? Almos t all peopl e with 0-1 risk facto r have a 10 year risk <10%, thus 10 year risk asses ment in peopl e with 0-1 risk facto r is not lavinia mccain. Not Available [address], [id number], 02/09/2015 17:17:09 08/12/19 16 08/12/2015 CMP, serum or plasm a glucose 102 mg/dL 70-100 high Not Available [address], [address], 08/12/2015 15:40:19 08/12/19 16 08/12/2015 CMP, serum or plasm a BUN 16 mg/dL 7-18 Not Available [address], [address], 08/12/2015 15:40:19 08/12/19 16 08/12/2015 CMP, serum or plasm a creatinine 0.8 mg/dL 0.8-1. 3 Not Available [address], [address], 08/12/2015 15:40:19 08/12/19 16 08/12/2015 CMP, serum or plasm a B/C 20.0 ratio Not Available [address] [address], [address], 08/12/2015 15:40:19 08/12/19 16 08/12/2015 CMP, serum or plasm a GFR -non 78.8 mL/mi n Recom kati d GFR by the Natio nal Kidne y Found ation >60 mL/mi n/1.7 3m2 - Viviana l <60 mL/mi n/1.7 3m2 - Chron ic Kidne y Disea se <15 mL/mi n/1.7 3m2 - Kidne y Failu re Not Available [address], [address], 08/12/2015 15:40:19 08/12/19 16 08/12/2015 CMP, serum or plasm a GFR - if 90.6 mL/mi n For Afric an Ameri can patie nts: Resul ts Multi plied by 1.21 Not Available [address], [address], 08/12/2015 15:40:19 08/12/19 16 08/12/2015 CMP, serum or plasm a sodium 142 mmol/ L 136-14 5 Not Available [address], [address], 08/12/2015 15:40:19 08/12/19 16 08/12/2015 CMP, serum or plasm a potassium 4.4 mmol/ L 3.5-5. 1 Not Available [address], [address], 08/12/2015 15:40:08/12/19 16 08/12/2015 CMP, serum or plasm a chloride 104 mmol/ L 96-107 Not Available [address], [address], 08/12/2015 15:40:08/12/19 16 08/12/2015 CMP, serum or plasm a anion gap 9.5 5.0-15 .0 Not Available [address], [address], 08/12/2015 15:40:08/12/19 16 08/12/2015 CMP, serum or plasm a CO2 29 mmol/ L 21-32 Not Available [address], [address], 08/12/2015 15:40:19 08/12/19 16 08/12/2015 CMP, serum or plasm a calcium 9.2 mg/dL 8.5-10 .3 Not Available [address], [address], 08/12/2015 15:40:08/12/19 16 08/12/2015 CMP, serum or plasm a total protein 6.7 g/dL 6.4-8. 2 Not Available [address], [address], 08/12/2015 15:40:08/12/19 16 08/12/2015 CMP, serum or plasm a albumin 3.7 g/dL 3.4-5. 0 Not Available [address], [address], 08/12/2015 15:40:08/12/19 16 08/12/2015 CMP, serum or plasm a globulin 3.0 g/dL Not Available [address], [address], 08/12/2015 15:40:19 08/12/19 16 08/12/2015 CMP, serum or plasm a A/G 1.2 ratio 0.8-2. 0 Not Available [address], [address], 08/12/2015 15:40:19 08/12/19 16 08/12/2015 CMP, serum or plasm a total bilirubin 0.50 mg/dL 0.00-1 .00 Not Available [address], [address], 08/12/2015 15:40:19 08/12/19 16 08/12/2015 CMP, serum or plasm a AST 15 U/L 15-37 Not Available [address], [address], 08/12/2015 15:40:19 08/12/19 16 08/12/2015 CMP, serum or plasm a ALT 28 U/L 30-65 low Not Available [address], [address], 08/12/2015 15:40:19 08/12/19 16 08/12/2015 CMP, serum or plasm a alk. phos. 112 U/L 50-136 Not Available [address], [address], 08/12/2015 15:40:19 08/12/19 16 08/12/2015 lipid panel , serum cholesterol 246 mg/dL <200 mg/dl Meera able 200-2 39 mg/dl Borde rline High >240 mg/dl High Not Available [address], [address], 08/12/2015 15:40:20 08/12/19 16 08/12/2015 lipid panel , serum triglyceride s 119 mg/dL <150 mg/dL Viviana l 150-1 99 mg/dL Borde rline High 200-4 99 mg/dL High >500 mg/dL Very High Not Available [address], [address], 08/12/2015 15:40:20 08/12/19 16 08/12/2015 lipid panel , serum direct HDL 72 mg/dL Not Available [address], [address], 08/12/2015 15:40:20 08/12/19 16 08/12/2015 LDL, calcu lated , serum (OBS) LDL - calculated 150.2 RISK CATEG ORY LDL GOAL _ CHD or CHD Risk Equiv alent s <100 mg/dl (10-y ear risk >20%) 2+ Risk Facto rs <130 mg/dl (10-y ear risk <= 20%) 0-1 Risk Facto r? <160 mg/dl ? Almos t all peopl e with 0-1 risk facto r have a 10 year risk <10%, thus 10 year risk asses ment in peopl e with 0-1 risk facto r is not neces adán. Not Available [address], [address], 08/12/2015 15:40:21 09/15/19 16 09/15/2015 PT/IN R prothrombin time 11.7 sec see below low Range s: Viviana l: 12.1 - 14.3 secon ds Not Available [facility] (Outpatient) [address] [place], [address], 09/15/2015 15:40:34 09/15/19 16 09/15/2015 PT/IN R INR 0.87 see below low Range s: Viviana l: 0.89- 1.11 Low-I ntens ity OAC Thera py: 1.5 - 2.0 Mod-I ntens ity OAC Thera py: 2.0 - 3.0 High- Inten sity OAC Thera py: 2.5 - 3.5 OR 3.0 - 4.0 Commo n Criti matilde/A larm value : 5.0 Commo n Upper Limit repor libia: 10.0 New Range Effec tive: Augus t 2012. Not Available [facility] (Outpatient) [address] [place] [address], [address], 09/15/2015 15:40:34 09/15/19 16 09/15/2015 CBC w/ auto diff WBC 7.3 K/uL 3.4-11 .2 Not Available [facility] (Outpatient) [address] [place] [address], [address], 09/15/2015 15:52:58 09/15/19 16 09/15/2015 CBC w/ auto diff RBC 4.80 M/uL 3.80-4 .80 Not Available [facility] (Outpatient) [address] [place] [address], [address], 09/15/2015 15:52:58 09/15/19 16 09/15/2015 CBC w/ auto diff hemoglobin 13.9 g/dL 12.0-1 5.0 Not Available [facility] (Outpatient) [address] [place] [address], [address], 09/15/2015 15:52:58 09/15/19 16 09/15/2015 CBC w/ auto diff hematocrit 42.2 % 36.0-4 6.0 Not Available [facility] (Outpatient) [address] [place] [address], [address], 09/15/2015 15:52:58 09/15/19 16 09/15/2015 CBC w/ auto diff MCV 87.9 fL 79.0-9 8.0 Not Available [facility] (Outpatient) [address] [place] [address], [address], 09/15/2015 15:52:58 09/15/19 16 09/15/2015 CBC w/ auto diff MCH 29.0 pg 27.0-3 4.8 Not Available [facility] (Outpatient) [address] [place] [address], [address], 09/15/2015 15:52:58 09/15/19 16 09/15/2015 CBC w/ auto diff MCHC 32.9 g/dL 31.5-3 6.0 Not Available [facility] (Outpatient) [address] [place], [address], 09/15/2015 15:52:58 09/15/19 16 09/15/2015 CBC w/ auto diff RDW 14.2 % 10.8-1 4.6 Not Available [facility] (Outpatient) [address] [place], [address], 09/15/2015 15:52:58 09/15/19 16 09/15/2015 CBC w/ auto diff MPV 11.5 fL 9.4-12 .4 Not Available [facility] (Outpatient) [address] [place] [address], [address], 09/15/2015 15:52:58 09/15/19 16 09/15/2015 CBC w/ auto diff platelet count 235 K/uL 130-40 0 Not Available [facility] (Outpatient) [address] [place], [address], 09/15/2015 15:52:58 09/15/19 16 09/15/2015 CBC w/ auto diff neutrophils 67.6 % 45.3-7 7.7 Not Available [facility] (Outpatient) [address] [place], [address], 09/15/2015 15:52:58 09/15/19 16 09/15/2015 CBC w/ auto diff lymphocytes 20.4 % 12.3-3 9.7 Not Available [facility] (Outpatient) [address] [place] [address], [address], 09/15/2015 15:52:58 09/15/19 16 09/15/2015 CBC w/ auto diff monocytes 7.1 % 4.1-12 .8 Not Available [facility] (Outpatient) [address] [place], [address], 09/15/2015 15:52:58 09/15/19 16 09/15/2015 CBC w/ auto diff eosinophils 4.10 % 0.00-7 .20 Not Available [facility] (Outpatient) [address] [place], [address], 09/15/2015 15:52:58 09/15/19 16 09/15/2015 CBC w/ auto diff basophils 0.50 % 0.00-2 .80 Not Available [facility] (Outpatient) [address] [place], [address], 09/15/2015 15:52:58 09/15/19 16 09/15/2015 CBC w/ auto diff absolute neutrophil 4.9 K/uL 1.4-7. 7 Not Available [facility] (Outpatient) [address] [place] [address], [address], 09/15/2015 15:52:58 09/15/19 16 09/15/2015 CBC w/ auto diff absolute lymphocyte 1.5 K/uL 0.6-3. 2 Not Available [facility] (Outpatient) [address] [place] [address], [address], 09/15/2015 15:52:58 09/15/19 16 09/15/2015 CBC w/ auto diff absolute monocytes 0.5 K/uL 0.1-0. 6 Not Available [facility] (Outpatient) [address] [place], [address], 09/15/2015 15:52:58 09/15/19 16 09/15/2015 CBC w/ auto diff absolute eosinophil 0.30 K/uL 0.01-0 .50 Not Available [facility] (Outpatient) [address] [place] [address], [address], 09/15/2015 15:52:58 09/15/19 16 09/15/2015 CBC w/ auto diff absolute basophils 0.04 K/uL Not Available [facility] (Outpatient) [address] [place], [address], 09/15/2015 15:52:58 09/15/19 16 09/15/2015 CBC w/ auto diff immature granulocyte 0.30 % 0.00-0 .50 Not Available [facility] (Outpatient) [address] [place], [address], 09/15/2015 15:52:58 09/15/19 16 09/15/2015 CBC w/ auto diff absolute immature granulocyte 0.02 K/uL 0.00-0 .03 Not Available [facility] (Outpatient) [address] [place], [address], 09/15/2015 15:52:58 09/15/19 16 09/15/2015 BMP, serum or plasm a glucose 114 mg/dL 70-99 high Not Available [facility] (Outpatient) [address] [place] [address], [address], 09/15/2015 16:23:29 09/15/19 16 09/15/2015 BMP, serum or plasm a BUN 16 mg/dL 6-19 Not Available [facility] (Outpatient) [address] [place] [address], [address], 09/15/2015 16:23:29 09/15/19 16 09/15/2015 BMP, serum or plasm a creatinine 0.7 mg/dL 0.5-1. 5 Not Available [facility] (Outpatient) [address] [place] [address], [address], 09/15/2015 16:23:29 09/15/19 16 09/15/2015 BMP, serum or plasm a GFR >60 mL/mi n >60 NKDEP (Diya onal Kidne y Disea se Educa tion Progr am) does not endor se the use of the MDRD (Alondra ficat ion of Diet in Renal Disea se) equat ion for estim ating GFR in patie nts that are not betwe en the ages of 18 and 70. Not Available [facility] (Outpatient) [address] [place] [address], [address], 09/15/2015 16:23:29 09/15/19 16 09/15/2015 BMP, serum or plasm a sodium 143 mEq/L 133-14 6 Not Available [facility] (Outpatient) [address] [place] [address], [address], 09/15/2015 16:23:29 09/15/19 16 09/15/2015 BMP, serum or plasm a potassium 3.9 mEq/L 3.3-5. 1 Not Available [facility] (Outpatient) [address] [place] [address], [address], 09/15/2015 16:23:29 09/15/19 16 09/15/2015 BMP, serum or plasm a chloride 103 mEq/L 96-108 Not Available [facility] (Outpatient) [address] [place] [address], [address], 09/15/2015 16:23:29 09/15/19 16 09/15/2015 BMP, serum or plasm a CO2 26 mEq/L 21-35 Not Available [facility] (Outpatient) [address] [place] [address], [address], 09/15/2015 16:23:29 09/15/19 16 09/15/2015 BMP, serum or plasm a calcium 9.4 mg/dL 8.4-10 .3 Not Available [facility] (Outpatient) [address] [place] [address], [address], 09/15/2015 16:23:29 09/15/19 16 09/15/2015 BMP, serum or plasm a anion gap 18 mEq/L 10-20 Not Available [facility] (Outpatient) [address] [place] [address], [address], 09/15/2015 16:23:29 10/26/19 16 10/26/2015 CBC w/ auto diff WBC 7.2 K/uL 3.4-11 .2 Not Available [address] [place], [address], 10/26/2015 10:22:53 10/26/19 16 10/26/2015 CBC w/ auto diff RBC 4.73 M/uL 3.80-4 .80 Not Available [address], [address], 10/26/2015 10:22:53 10/26/19 16 10/26/2015 CBC w/ auto diff hemoglobin 13.8 g/dL 12.0-1 5.0 Not Available [address], [address], 10/26/2015 10:22:53 10/26/19 16 10/26/2015 CBC w/ auto diff hematocrit 40.3 % 36.0-4 6.0 Not Available [address], [address], 10/26/2015 10:22:53 10/26/19 16 10/26/2015 CBC w/ auto diff MCV 85.2 fL 79.0-9 8.0 Not Available [address], [address], 10/26/2015 10:22:53 10/26/19 16 10/26/2015 CBC w/ auto diff MCH 29.2 pg 27.0-3 4.8 Not Available [address], [address], 10/26/2015 10:22:53 10/26/19 16 10/26/2015 CBC w/ auto diff MCHC 34.2 g/dL 31.5-3 6.0 Not Available [address], [address], 10/26/2015 10:22:53 10/26/19 16 10/26/2015 CBC w/ auto diff RDW 13.7 % 10.8-1 4.6 Not Available [address], [address], 10/26/2015 10:22:53 10/26/19 16 10/26/2015 CBC w/ auto diff MPV 12.0 fL 9.4-12 .4 Not Available [address], [address], 10/26/2015 10:22:53 10/26/19 16 10/26/2015 CBC w/ auto diff platelet count 214 K/uL 130-40 0 Not Available [address], [address], 10/26/2015 10:22:53 10/26/19 16 10/26/2015 CBC w/ auto diff neutrophils 62.5 % 45.3-7 7.7 Not Available [address], [address], 10/26/2015 10:22:53 10/26/19 16 10/26/2015 CBC w/ auto diff lymphocytes 24.5 % 12.3-3 9.7 Not Available [address], [address], 10/26/2015 10:22:53 10/26/19 16 10/26/2015 CBC w/ auto diff monocytes 5.4 % 4.1-12 .8 Not Available [address], [address], 10/26/2015 10:22:53 10/26/19 16 10/26/2015 CBC w/ auto diff eosinophils 7.10 % 0.00-7 .20 Not Available [address], [address], 10/26/2015 10:22:53 10/26/19 16 10/26/2015 CBC w/ auto diff basophils 0.40 % 0.00-2 .80 Not Available [address], [address], 10/26/2015 10:22:53 10/26/19 16 10/26/2015 CBC w/ auto diff absolute neutrophil 4.5 K/uL 1.4-7. 7 Not Available [address], [address], 10/26/2015 10:22:53 10/26/19 16 10/26/2015 CBC w/ auto diff absolute lymphocyte 1.8 K/uL 0.6-3. 2 Not Available [address], [address], 10/26/2015 10:22:53 10/26/19 16 10/26/2015 CBC w/ auto diff absolute monocytes 0.4 K/uL 0.1-0. 6 Not Available [address], [address], 10/26/2015 10:22:53 10/26/1910/26/2015 CBC w/ auto diff absolute eosinophil 0.51 K/uL 0.01-0 .50 high Not Available [address], [address], 10/26/2015 10:22:53 10/26/1910/26/2015 CBC w/ auto diff absolute basophils 0.03 K/uL Not Available [address], [address], 10/26/2015 10:22:53 10/26/1910/26/2015 CBC w/ auto diff immature granulocyte 0.10 % 0.00-0 .50 Not Available [address], [address], 10/26/2015 10:22:53 10/26/1910/26/2015 CBC w/ auto diff absolute immature granulocyte 0.01 K/uL 0.00-0 .03 Not Available [address], [address], 10/26/2015 10:22:53 10/26/1910/26/2015 BMP, serum or plasm a glucose 113 mg/dL 70-99 high Not Available [address], [address], 10/26/2015 11:15:03 10/26/19 16 10/26/2015 BMP, serum or plasm a BUN 17 mg/dL 6-19 Not Available [address], [address], 10/26/2015 11:15:03 10/26/19 16 10/26/2015 BMP, serum or plasm a creatinine 0.7 mg/dL 0.5-1. 5 Not Available [address], [address], 10/26/2015 11:15:03 10/26/19 16 10/26/2015 BMP, serum or plasm a GFR >60 mL/mi n >60 NKDEP (Diya onal Kidne y Disea se Educa tion Progr am) does not endor se the use of the MDRD (Alondra ficat ion of Diet in Renal Disea se) equat ion for estim ating GFR in patie nts that are not betwe en the ages of 18 and 70. Not Available [address], [address], 10/26/2015 11:15:03 10/26/19 16 10/26/2015 BMP, serum or plasm a sodium 142 mEq/L 133-14 6 Not Available [address], [address], 10/26/2015 11:15:03 10/26/19 16 10/26/2015 BMP, serum or plasm a potassium 4.0 mEq/L 3.3-5. 1 Not Available [address], [address], 10/26/2015 11:15:03 10/26/19 16 10/26/2015 BMP, serum or plasm a chloride 104 mEq/L 96-108 Not Available [address], [address], 10/26/2015 11:15:03 10/26/19 16 10/26/2015 BMP, serum or plasm a CO2 24 mEq/L 21-35 Not Available [address], [address], 10/26/2015 11:15:03 10/26/19 16 10/26/2015 BMP, serum or plasm a calcium 9.5 mg/dL 8.4-10 .3 Not Available [address], [address], 10/26/2015 11:15:03 10/26/19 16 10/26/2015 BMP, serum or plasm a anion gap 18 mEq/L 10-20 Not Available [address], [address], 10/26/2015 11:15:03 10/26/19 16 10/26/2015 lipid panel , serum cholesterol 132 mg/dL 0-240 Not Available [address], [address], 10/26/2015 11:15:10 10/26/19 16 10/26/2015 lipid panel , serum triglyceride s 99 mg/dL 30-160 Not Available [address], [address], 10/26/2015 11:15:10 10/26/19 16 10/26/2015 lipid panel , serum HDL cholesterol 57 mg/dL INTER PRETA TION: Risk Level Femal es Decre ased >55mg /dL [place] ge 50-55 mg/dL Incre ased <50 mg/dL Not Available [address], [address], 10/26/2015 11:15:10 10/26/19 16 10/26/2015 lipid panel , serum LDL cholesterol 55 mg/dL INTER PRETA TION: Meera able Level : <130 Borde rline High: 130 - 159 High Level : >160 Not Available [address], [address], 10/26/2015 11:15:10 10/26/19 16 10/26/2015 lipid panel , serum chol/HDL risk fact 2.32 3.27-4 .44 low Not Available [address], [address], 10/26/2015 11:15:10 10/26/19 16 10/26/2015 hepat ic funct ion panel , serum alkaline phosphatase 124 U/L 39-117 high Not Available [address], [address], 10/26/2015 11:15:10 10/26/19 16 10/26/2015 hepat ic funct ion panel , serum total bilirubin 0.4 mg/dL 0.0-1. 2 Not Available [address], [address], 10/26/2015 11:15:10 10/26/19 16 10/26/2015 hepat ic funct ion panel , serum bilirubin direct 0.12 mg/dL 0.00-0 .30 Not Available [address], [address], 10/26/2015 11:15:10 10/26/19 16 10/26/2015 hepat ic funct ion panel , serum bilirubin indirect see below mg/dL Not able to calcu late. Not Available [address], [address], 10/26/2015 11:15:10 10/26/19 16 10/26/2015 hepat ic funct ion panel , serum AST (SGOT) 20 U/L 0-37 Not Available [address], [address], 10/26/2015 11:15:10 10/26/19 16 10/26/2015 hepat ic funct ion panel , serum ALT (SGPT) 22 U/L 0-40 Not Available [address], [address], 10/26/2015 11:15:10 10/26/19 16 10/26/2015 hepat ic funct ion panel , serum total protein 6.4 g/dL 6.5-8. 0 low Not Available [address], [address], 10/26/2015 11:15:10 10/26/19 16 10/26/2015 hepat ic funct ion panel , serum albumin 4.0 g/dL 3.9-4. 8 Not Available [address], [address], 10/26/2015 11:15:10 10/26/19 16 10/26/2015 hepat ic funct ion panel , serum globulin 2.4 gm/dL 1.0-4. 8 Not Available [address], [address], 10/26/2015 11:15:10 10/26/19 16 10/26/2015 hepat ic funct ion panel , serum A/G ratio 1.7 gm/dL 1.0-4. 8 Not Available [address], [address], 10/26/2015 11:15:10 10/26/19 16 10/26/2015 PT/IN R prothrombin time 12.8 sec see below Range s: Viviana l: 12.1 - 14.3 secon ds Not Available [address], [address], 10/26/2015 11:33:53 10/26/19 16 10/26/2015 PT/IN R INR 0.98 see below Range s: Viviana l: 0.89- 1.11 Low-I ntens ity OAC Thera py: 1.5 - 2.0 Mod-I ntens ity OAC Thera py: 2.0 - 3.0 High- Inten sity OAC Thera py: 2.5 - 3.5 OR 3.0 - 4.0 Commo n Criti matilde/A larm value : 5.0 Commo n Upper Limit repor libia: 10.0 New Range Effec tive: Mylene t 2012. Not Available [address], [address], 10/26/2015 11:33:53 08/21/19 24 08/21/2023 LIPID PANEL HDL 62 mg/dL Inter preta tion <40 mg/dL : Low HDL guillermo stero l (michael r risk facto r for CHD) Great er than or equal to 60 mg/dL : High HDL guillermo stero l ( neg ative risk facto r for CHD) HDL - guillermo stero l is affec libia by a numbe r of facto rs, e.g. veronica gutierrez, shikha yanes, hormo mirian, sex and age. Not Available [facility] (Outpatient) [address] [place], [address], 08/21/2023 18:41:05 08/21/19 24 08/21/2023 LIPID PANEL cholesterol 141 mg/dL 0-240 Not Available [facility] (Outpatient) [address] [place], [address], 08/21/2023 18:41:05 08/21/19 24 08/21/2023 LIPID PANEL triglyceride s 163 mg/dL 30-160 high Not Available [facility] (Outpatient) [address] [place], [address], 08/21/2023 18:41:05 08/21/19 24 08/21/2023 LIPID PANEL LDL 46 mg/dL 50-129 low LDL level s in terms of risk for coron nancy heart disea se: <100 mg/dL : Optim al 100-1 29 mg/dL : Near or above optim al 130-1 59 mg/dL : Borde taneshaine high 160-1 89 mg/dL : High >190 mg/dL : Very High Not Available [facility] (Outpatient) [address] [place], [address], 08/21/2023 18:41:05 08/21/19 24 08/21/2023 LIPID PANEL cardiac risk ratio 2.3 3.3-4. 4 low Not Available [facility] (Outpatient) [address] [place], [address], 08/21/2023 18:41:05 07/09/19 15 07/08/2014 ultra sound , abdom inal OBSERV ATION: Exam Name HISTOR Y: Vomiti ng, diarrh ea, chills for 5 days. Histor y of cholec ystect gissell. COMPAR ORALIA: 2010 FINDIN GS: Liver parenc hyma is mildly echoge ruby which was descri bed previo usly. No focal hepati c lesion s are detect ed. Gallbl adder is surgic ally absent . No intra- or extra hepati c biliar y ductal dilata tion. Common bile duct measur es 0.5 cm constantino lly. Pancre as obscur ed by bowel gas and cannot be assess ed. Normal appear ance of the spleen . Kidney s are within normal limits measur ing 11.7 x 4.8 cm on the right and 11.2 x 5.5 cm on the left. Visual ized aorta and IVC are unrema rkable . IMPRES MARCELA: Echoge ruby liver parenc hyma as seen previo usly most common ly seen with fatty liver. It can also be seen with chroni c hepato cellul ar diseas e. Cholec ystect gissell. Pancre as obscur ed by bowel gas. Code: 10093 POS - VMG Electr onical ly signed Merry Carson meron: Natasha Walker MD [facility] (Imaging) [address], [place], [address], 07/08/2014 20:29:11 11/28/19 15 11/27/2014 imagi ng/di agnos tic resul t No observ ation record ed. [facility] Orders [address], [place], [address], 12/05/2014 12:43:24 02/24/20 15 02/02/2015 imagi ng/di agnos tic resul t No observ ation record ed. BARCODE Not Available 2014 16:44:22 09/17/19 16 09/14/2015 exerc ise megans s test No observ ation record ed. [facility] [address], [place], [address], 09/21/2015 08:58:25 10/29/19 16 10/29/2015 echoc ardio gram No observ ation record ed. [facility] [address], [place], [address], 11/18/2015 06:19:19 01/14/20 23 01/11/2023 ankle brach ial index No observ ation record ed. [facility], [address], 03/18/2023 15:29:03 01/14/20 23 01/11/2023 arter ial study , lower extre mity, compl ete No observ ation record ed. [address], [address], 03/18/2023 15:29:03 Result Notes None recorded. Problems Name Problem SNOMED Code Status Onset Date Resolution Date Notes Provider Name and Address Organization Details Recorded Time Benign essential hypertension 0655052 Active Essence Rasmussen MD [address] [place], [place] [address], [address], [facility] 6 11:06:25 Primary fibromyalgia syndrome 24281169 Active Essnece Rasmussen MD [address] [place], [place] [address], [address], [facility] 5 12:27:22 Angina pectoris [id number] Active 2015 Maureen Sheehan PA-C [address] [place], [place] [address], [address], [facility] 6 10:06:16 Problem Notes None recorded. Procedures Surgical History Date Name Laterality Status Provider Name and Address Organization Details Recorded Time 02/20/20 15 Medicare Wellness Visit completed LUIS Morales [facility] 02/19/2015 11:39:55 02/11/20 14 Medicare Wellness Visit completed Eufemia Colby RN [facility] 02/10/2014 11:30:27 02/07/20 13 Medicare Wellness Visit completed Eufemia Colby RN [facility] 02/06/2013 10:14:30 02/03/20 12 Medicare Wellness Visit completed Damian Lemons LPN [facility] 02/03/2012 10:07:54 02/02/20 11 Medicare Wellness Visit completed Keiko Scott MA [facility] 02/01/2011 11:31:33 Cholecystectomy completed Essence hamilton MD [address] [place], [address], [facility] 02/03/2012 10:59:18 Bladder Surgery completed Essence hamilton MD [address] [place] [address], [phone], [facility] 02/03/2012 10:59:18 Imaging Results Imaging Date Name Status LastModified by Organization Details LastModified Time 07/08/2014 ultrasound, abdominal completed [facility] (Imaging) [address], [place], [address], 07/08/2014 20:29:11 11/27/2014 imaging/diagnosti c result completed [facility] Orders [address], [place], [address], 12/05/2014 12:43:24 02/02/2015 imaging/diagnosti c result completed BARCODE Information not available 02/23/2015 16:44:22 09/14/2015 exercise stress test completed [facility] [address], [place], [address], 09/21/2015 08:58:25 10/29/2015 echocardiogram completed [facility] [address], [place], [address], 11/18/2015 06:19:19 01/11/2023 ankle brachial index completed [facility] [address], [place], [address], 03/18/2023 15:29:03 01/11/2023 arterial study, lower extremity, complete completed [facility] - [address], [place], [address], 03/18/2023 15:29:03 Procedure Notes None recorded. Medical Equipment None Reported. Allergies No known drug allergies Medications Name Sig Start Date Stop Date Status Note LastModified by Organization Details LastModified Time amoxicilli n 500 mg capsule active Not Available Not Available Not Available atorvastat in 40 mg tablet Take 1 tablet every day by oral route. active Not Available Not Available No t Available prednisone 10 mg tablet take 40mg x1d, then 30mg x3d, then 20mg x3d, then 10mg x3d, then 5mg (1/2 tab) x2d 2011 active Not Available Not Available Not Avai lable nabumetone 750 mg tablet Take 1 tablet twice a day by oral route. active Not Available Not Available No t Available cetirizine 10 mg tablet Take 1 tablet every day by oral route. 2012 active Not Available Not Available Not Avai lable azithromyc in 250 mg tablet TAKE 2 TABLETS BY MOUTH TODAY, THEN TAKE 1 TABLET DAILY FOR 4 DAYS active Not Available Not Available No t Available ondansetro n HCl 4 mg tablet TAKE 2 TABLETS BY MOUTH TWICE A DAY FOR 5 DAYS active Not Available Not Available No t Available Vitamin C 500 mg chewable tablet active TAKE 1 DAILY Not Available Not Available Not Available amlodipine 5 mg tablet TAKE 1 TABLET BY MOUTH EVERY DAY 09/14 completed Not Available Not Available Not Available ciprofloxa edith 500 mg tablet Take 1 tablet every 12 hours by oral route for 7 days. active Not Available Not Available No t Available tramadol 50 mg tablet prn only active Not Available Not Available Not Available losartan 100 mg-hydroch lorothiazi de 25 mg tablet Take 1 tablet every day by oral route. 2010 active Not Available Not Available Not Avai lable oxycodone- acetaminop hen 5 mg-325 mg tablet active Not Available Not Available Not Available baclofen 10 mg tablet Take 1 tablet 4 times a day by oral route as needed. active Not Available Not Available No t Available benzonatat e 100 mg capsule TAKE 1 TO 2 CAPSULES BY MOUTH UP TO 3 TIMES A DAY NEEDED FOR COUGH active Not Available Not Available No t Available hydrocodon e 7.5 mg-acetami nophen 750 mg tablet active Not Available Not Available No t Available prednisone 50 mg tablet Take 1 tablet every day by oral route for 5 days. 07/21 completed Not Available Not Available Not Available Diovan HCT 160 mg-12.5 mg tablet active TAKE 1 TAB DAILY Not Available Not Available Not Available orphenadri ne citrate ER 100 mg tablet,ext ended release Take 1 tablet 3 times a day by oral route. active Prn Not Available Not Available No t Available codeine 10 mg-guaifen esin 100 mg/5 mL Syrup Take 10 millilit ers by oral route at bedtime as needed for cough. 2010 active Not Available Not Available Not Avai lable omeprazole 20 mg capsule,de layed release TAKE ONE CAPSULE EVERY DAY active Not Available Not Available No t Available Cheratussi n AC 10 mg-100 mg/5 mL oral liquid Take 10 millilit ers by oral route qhs prn coughing active Not Available Not Available No t Available Nasonex 50 mcg/actuat ion [place] 2 sprays every day by intranas al route. active Not Available Not Available No t Available ibuprofen 600 mg tablet active Not Available Not Available Not Available fluticason e propionate 50 mcg/actuat ion nasal spray,susp ension Inhale 2 sprays every day by intranas al route. active Not Available Not Available No t Available clotrimazo le 1 % topical cream Apply to the affected and surround ing areas of skin by topical route 2 times per day 2009 active Not Available Not Available Not Avai lable loratadine 10 mg tablet Take 1 tablet every day by oral route. active Not Available Not Available No t Available nabumetone 500 mg tablet active Not Available Not Available Not Available valsartan 160 mg tablet TAKE 1 TABLET EVERY DAY active Not Available Not Available No t Available paroxetine ER 25 mg tablet,ext ended release 24 hr active Not Available Not Available Not Available paroxetine ER 12.5 mg tablet,ext ended release 24 hr active Not Available Not Available Not Available valsartan 160 mg-hydroch lorothiazi de 25 mg tablet Take 1 tablet every day by oral route for 90 days. active Not Available Not Available No t Available Estrace 0.01% (0.1 mg/gram) vaginal cream insert 1g PV qhs x1week, then 2x/week 2010 active Not Available Not Available Not Avai lable Skelaxin 800 mg tablet active TAKE 1 TAB EVERY 4-6 HOURS NEEDED Not Available Not Available Not Available Premarin 0.625 mg/gram vaginal cream active Not Available Not Available Not Available metoprolol tartrate 25 mg tablet Take 1 tablet twice a day by oral route. active Not Available Not Available No t Available Adacel (Tdap Adolesn/Ad ult)(PF)2L f-(2.5-5-3 -5mcg)-5 Lf/0.5 mL IM susp inject 0.5 millilit er intramus cularly active Not Available Not Available No t Available vitamin E 400 mg daily active Not Available Not Available No t Available tramadol Hcl 50 mg 2 tabs Tid prn active Not Available Not Available No t Available multivitam in active TAKE 1 DAILY Not Available Not Available Not Available Calcium 500 + D active BID Not Available Not Available Not Available ProAir HFA 90 mcg/actuat ion aerosol inhaler TAKE 2 INHALATI ONS BY MOUTH EVERY 4 HOURS active Not Available Not Available No t Available MoviPrep 100 gram-7.5 gram-2.691 gram oral powder packet active Not Available Not Available Not Available Fish Oil 1,000 mg capsule active Not Available Not Available Not Available Fluzone High-Dose [id number] (PF) 180 mcg/0.5 mL intramuscu lar syringe inject 0.5 millilit er intramus cularly active Not Available Not Available No t Available Fluzone High-Dose (PF) 180 mcg/0.5 mL intramuscu lar syringe inject 0.5 millilit er intramus cularly active Not Available Not Available No t Available Afluria (PF) 45 mcg (15 mcg x 3)/0.5 mL IM syringe inject 0.5 millilit er intramus cularly active Not Available Not Available No t Available Vitals Date Recorded Body height Heart rate Body temperature Systolic blood pressure Diastolic blood pressure Provider Name and Address Organization Details Last Updated DateTime 05/01/2014 160.02 cm 72 /min 98.1 [degF] 136 mm[Hg] 80 mm[Hg] Whit Carey [facility] 5 17:10:08 Date Recorded Body weight Body height Body mass index (BMI) Body temperature Systolic blood pressure Diastolic blood pressure Provider Name and Address Organization Details Last Updated DateTime 5 42869.4 19132 g 160.02 cm 33.1 kg/m2 97.7 [degF] 100 mm[Hg] 60 mm[Hg] Rissa Pierrecaesar [facility] 5 09:32:43 Date Recorded Body height Body mass index (BMI) Body weight Heart rate Systolic blood pressure Diastolic blood pressure Provider Name and Address Organization Details Last Updated DateTime 5 160.02 cm 34.1 kg/m2 97784.1 18992 g 80 /min 130 mm[Hg] 84 mm[Hg] Eufemia Colby RN [facility] 5 10:52:02 Date Recorded Body height Body mass index (BMI) Body weight Heart rate Systolic blood pressure Diastolic blood pressure Provider Name and Address Organization Details Last Updated DateTime 5 160.02 cm 33.9 kg/m2 93258.9 19444 g 88 /min 124 mm[Hg] 82 mm[Hg] LUIS Harris [facility] 5 11:55:40 Date Recorded Body height Body mass index (BMI) Body weight Heart rate Systolic blood pressure Diastolic blood pressure Provider Name and Address Organization Details Last Updated DateTime 6 160.02 cm 34 kg/m2 37537.7 3504 g 84 /min 136 mm[Hg] 90 mm[Hg] Eufemia Colby RN [facility] 6 09:45:13 Date Recorded Systolic blood pressure Diastolic blood pressure Provider Name and Address Organization Details Last Updated DateTime 08/19/2015 128 mm[Hg] 82 mm[Hg] Essence Rasmussen MD [address] [place] [address], [phone], [facility] 08/19/2015 10:06:05 Social History Question Answer Notes LastModified by Organizat ion Details LastModified Time Tobacco Smoking Status Former Smoker quit 1989 Essence Rasmussen MD [address] [place] [address], [phone], [facility] 07/13/2010 10:18:14 Do You Have An Advance Directive? Yes [email or web address] [id number] Information not available 02/03/2011 What Is Your Level Of Alcohol Consumption? Occasional Information not available 02/19/2015 How Much Tobacco Do You Chew? None Information not available 02/19/2015 What Type Of Diet Are You Following? REGULAR Very Healthy Information not available 02/01/2011 Which Illicit Or Recreational Drugs Have You Used? None Information not available 02/19/2015 How Many Days In The Past Year Have You Had A Heavy Drinking Consumption (4+ Female, 5+ Male)? 0 Information not available 02/19/2015 Are There Any Guns Present In Your Home? Yes Information not available 02/19/2015 Live Alone Or With Others? With Others Information not available 02/19/2015 Patient Has Health Care Proxy Signed And In Chart Yes - Lexa Jacob [phone] Alternate- Daughter Addie Chin Information not available 02/01/2011 CCM Consent Discussion 08/19/2015 [email or web address] Information not available 08/19/2015 Marital Status Information not available 02/03/2011 Mosquito Repellent Used Routinely Yes Information not available 02/19/2015 How Many Children Do You Have? 2 And 2 Grandkids. Information not available 01/29/2010 Seat Belts Used Routinely Yes Information not available 02/19/2015 Are You Sexually Active? Yes Information not available 02/01/2011 Smoke Alarm In Home Yes Information not available 02/19/2015 General Stress Level Medium Information not available 02/19/2015 Do You Use Sunscreen Routinely? Yes Information not available 02/19/2015 Sex: Unknown Functional Status None recorded. Mental Status None recorded. Family History Relationship Description Onset Age of this Age Resolved Age Notes LastModified by Organization Details LastModified Time Father Heart disease 70 yperry Not available 2014 12:24:50 Father Hypertensive disorder yperry Not available 2014 12:24:50 Sister Disorder of thyroid gland Hashim otos yperry Not available 02/19/2015 12:24:50 Mother Hypertensive disorder yperry Not available 2014 12:24:50 Mother Pernicious anemia yperry Not available 2014 12:24:50 Maternal Grandmother Diabetes mellitus yperry Not available 2014 12:24:50 Medical History Condition Response Coronary Artery Disease Y Cataracts Y Obesity Y Osteoarthritis Y NEUROLOGIC Y Chronic Neck Pain Y GASTROINTESTINAL Y METABOLIC Y Chronic Back Pain Y CARDIOVASCULAR Y GERD Y MUSCULOSKELETAL Y Colon Polyps Y Fibromyalgia Y Hypertension Y Gynecological History Statement/Question Response Obstetrics History GPAL:G 0 P 0 0 0 0 Immunizations Vaccine Type Date Status Note Provider Nam e and Address Organization Details Recorded Time zoster live 1 completed Not Available [facility] 04/06/2019 02:16:30 Influenza, split virus, trivalent, preservative 1 completed Not Available [facility] 04/06/2019 02:36:33 influenza, unspecified formulation 0 completed Not Available [facility] 02/02/2011 05:22:41 Influenza, split virus, trivalent, preservative 2 completed Damian Lemons LPN null, [facility] 12/02/2011 16:27:44 influenza, unspecified formulation 3 completed Eufemia Colby RN [facility], [facility] 01/02/2013 13:52:49 Tdap 3 completed Not Available [facility] 04/20/2019 02:10:39 Influenza, high-dose, trivalent, PF 4 completed Not Available [facility] 04/20/2019 02:10:39 influenza, unspecified formulation 5 completed Dulce Seymour CMA null, [facility] 01/13/2015 15:42:40 pneumococcal polysaccharide PPV23 0 completed Not Available [facility] 04/06/2019 02:38:01 Td (adult), 5 Lf tetanus toxoid, preservative free, adsorbed 0 completed Not Available [facility] 04/06/2019 02:29:16 Past Encounters Encounter ID Performer Location Encounter Start Date Encounter Closed Date Diagnosis/Indication Diagnosis SNOMED-CT Code Diagnosis ICD10 Code Diagnosis Note [id number] AMRIK ELLIOTT, OFFICE [address] [place] [id number] 01/29/2010 12:55:10 02/03/2010 14:14:28 [id number] FP, [facility], OFFICE [address] [facility] [place] [address] 03/26/2010 13:35:33 04/01/2010 12:34:26 [id number] , C, OFFICE [address] [facility] [place] [address] 04/23/2010 09:20:52 04/28/2010 09:17:37 [id number] FP, [facility], OFFICE [address] [place] [address] 05/18/2010 13:36:36 05/26/2010 09:37:30 [id number] Radiology , C [address] [place] [address] 05/20/2010 08:16:12 05/24/2010 14:42:18 [id number] , [facility], OFFICE [address] [place] [address] 07/13/2010 09:50:40 07/15/2010 14:00:27 [id number] , [facility], OFFICE [address] [place] [address] 07/16/2010 09:46:33 07/21/2010 15:36:38 [id number] Radiology , C [address] [place] [address] 07/16/2010 09:47:56 07/19/2010 13:40:08 [id number] Essence Rasmussen MD , [facility], OFFICE [address] [place] [address] 07/21/2010 09:39:13 07/27/2010 15:03:23 [id number] , [facility], OFFICE [address] [place] [address] 10/18/2010 09:09:40 10/21/2010 13:57:30 [id number] , C, OFFICE [address] [place] [address] 12/01/2010 07:22:25 12/03/2010 09:01:15 [id number] FP, [facility], OFFICE [address] [place] [address] 02/01/2011 11:23:16 02/01/2011 12:26:50 [id number] , [facility], OFFICE [address] [place] [address] 07/26/2011 09:48:54 07/26/2011 10:28:47 [id number] , [facility], OFFICE [address] [place] [address] 07/29/2011 12:46:34 07/29/2011 13:18:08 [id number] Eufemia Colby RN , [facility], OFFICE [address] [place] [address] 02/03/2012 10:01:51 02/03/2012 11:07:16 [id number] Essence Rasmussen MD , [facility], OFFICE [address] [place] [id number] 03/01/2012 11:26:57 03/01/2012 12:37:46 [id number] Essence Rasmussen MD , [facility], OFFICE [address] [place] [address] 05/24/2012 10:15:41 05/24/2012 10:54:26 [id number] Lindasharan Meza , [facility], OFFICE [address] [place] [address] 10/12/2012 12:29:41 10/12/2012 12:55:43 [id number] Essence Rasmussen MD , [facility], OFFICE [address] [place] [address] 10/23/2012 10:02:46 10/23/2012 10:39:42 [id number] Essence Rasmussen MD , [facility], OFFICE [address] [place] [address] 02/06/2013 10:00:25 02/06/2013 11:08:13 Adult health examination [id number] see Risk Assessment and Lifestyle Change Counseling section above Counseling 860219256 Allergic rhinitis 28857112 Malaise and fatigue 015719414 Hyperlipidemia 09007589 discussed 10y risk of ASCVD is 13%, so statin is rec'd to dec risk of NM but pt declines. plans to lose weight and lower cholester w/ TLC [id number] Essence Rasmussen MD , [facility], [address] [place] [address] 08/07/2013 09:04:11 08/07/2013 09:39:07 Benign essential hypertension 8565375 Blood pressure at goal Hyperlipidemia 97716004 have discussed that 10y risk of ASCVD > 7.5%, so statin is rec'd to dec risk of NM but pt declines. plans to lose weight and lower cholester w/ TLC. She has excellent HDL, so this is a reasonable approach. Obesity 477656660 dsicus sed importance of aerobic exercise and weight loss [id number] Essence Rasmussen MD , [facility], OFFICE [address] [place] [address] 02/10/2014 11:17:39 02/10/2014 12:17:16 Adult health examination 209985900 see Risk Assessment and Lifestyle Change Counseling section above Counseling 313904205 Allergic rhinitis 42483428 Tinea cruris 061155147 Benign ess ential hypertension 7463130 Blood pressure at goal [id number] Essence Rasmussen MD , [facility], OFFICE [address] [place] [address] 05/01/2014 16:54:27 05/01/2014 17:33:37 Pneumonia 870629454 Cough 98741588 [id number] Eufemia Colby RN , [facility], OFFICE [address] [place] [address] 07/06/2014 09:23:38 07/06/2014 10:05:28 Abdominal pain 48244892 likely infectious gastroente ritis RUQ focality on exam of concern, yet genearlly gasseous and exam was fluid will obtain labs and image. fluids encouraged rto for worsenng or ongoing symptoms [id number] , [facility], OFF[address] [place] [address] 08/13/2014 10:36:47 08/13/2014 11:18:40 Diarrhea 51026678 since this is new for her and ongoing, am starting w/u and advised her she needs to make appt w/ GI to discuss if scope needed. Knee joint effusion 840451610 advised that if s do not cont to resolve, to call for further management Benign ess ential hypertension 8164548 Blood pressure at goal Blood pressure NOT at goal. Dizziness 188636995 uncl ear if light-head ed or vertigo but BP is not too low and pt feels better after taking allergy med today. So advised to cont allergy med and call if sx recur [id number] Essence Rasmussen MD , [facility], OFFICE [address] [place] [address] 02/19/2015 11:19:49 02/19/2015 12:43:28 Adult health examination 811991182 Z00.00 see Risk Assessment and Lifestyle Change Counseling section above Counseling 193883485 Z71 .9 Visual impairment 137389 003 H54.7 dsicussed that this could be unusual presentati on for ocular migraines, has another eye exam coming up in Mar. Advsied to call if sx inc in severity/f requency or if any new associated sx develop Hoarse 68144010 R49.0 pt reports that this occurs every fall/winte r. Is also straining voice w/ frequent chorus practive. She will try allergy meds and call if not improving for referral to ENT [id number] Essence Rasmussen MD , [facility], OFFICE [address] [place] [address] 08/19/2015 09:38:18 08/19/2015 10:16:24 Benign essential hypertension 9775571 I10 Blood pressure at goal Chest pain 37480528 R07. 9 Impaired f asting glycemia 844722505 R73.01 has switched to all whole grains and is limiting carbs. Encourged to cont this and exercise. rehceck labs 6mo Diarrhea 75433922 R19.7 seems to have remote hx of IBS sx, but none for years. For for 1y having monthly bouts of loose stool. HX of frequent polyps on colonoscop ies, so advised to see her GI Health Concerns Section Related Observation LastModified by Organization Detai ls LastModified Time None Recorded Concern Status LastModified by Organization Details LastModified Time None Recorded Advance Directives Directive Y: Payers Encounter Date Sequence Insurance Name Policy Number Policy Pepe Covered Member ID Pepe Member ID Guarantor Name 05/01/2014 1 MEDICARE B-KS: [facility] [employer] Harper Jacob [id number] Harper Jacob 05/01/2014 2 [place] [id number] Harper Ekimovich [id number] Harper Ekimovich 07/06/2014 1 [place] [employer] Harper Ekimovich [id number] Harper Ekimovich 07/06/2014 2 [place] [id number] Harper Ekimovich [id number] Harper Ekimovich 08/13/2014 1 [place] [employer] Harper Ekimovich [id number] Harper Ekimovich 08/13/2014 2 [place] [id number] Harper Ekimovich [id number] Harper Ekimovich 02/19/2015 1 [place] [employer] Harper Ekimovich [id number] Harper Ekimovich 02/19/2015 2 [place] [id number] Harper Ekimovich [id number] Harper Ekimovich 08/19/2015 1 [place] [employer] Harper Ekimovich [id number] Harper Ekimovich 08/19/2015 2 [place] [id number] Harper Ekimovich [id number] Harper Ekimovich Notes Date Note Type Note Provider Name and Address Organization Details Recorded Time 05/01/2014 text/html Pt here with , cold symptoms off and on for 2 months, chest congestion with cough and yellow phlegm, no fever or chills, intermittent sweating. productive cough, coughing wakes her up at night. Using pro-air and nyquil that helps her sleep. Former smoker, mild asthma, some wheezing. Leyla Beard MD [address] [place] [address], [phone], [facility] 05/01/2014 23:08:22 07/06/2014 text/html food intolerance past 4 days has only eaten a single banana, piece toast past 3 days cc is diarrhea, profuse and onging tho able to sleep thru night last night which was an improveent and onging nausea. no ill contacts, well. + FSC Abd ai is general bloating- no focal abd pain.began passing fltus yesterday Montez Salazar MD [address] [place], [address], [facility] 07/21/2014 08:52:01 08/13/2014 text/html pt reports she f ell outside recently, tripped over a bump on the ground. still has left sided leg and arm pain. doesn't feel that there was any fracture so wasn't checked out. landed on her R knee and R hand- it was sore for about 2-3d, since then it just feels tight but no pain. also recently feels lightheaded in the morning for a few days, since it has been so hot outside. she is wondering if it is due to allergies because she took allergy med this AM and it is better today. has hx of BPPV she is not sure if it is vertiginous or light-headed. no other concerning sx feeling sore today due to gardening yday wants to start pro-biotics because she feels like my system is changing - sometimes she gets diarrhea after restaurant meals. sometimes get nauseated. she is usually very regular w/ BM 1x/d. lately it can be up to 3x/d and sometimes loose. This has been happening since she had 1 week of diarrhea and nausea in june. she had been feverish for the first couple days.currently no blood in stool. no melena. Essence Rasmussen MD [address] [place], [phone], [facility] 08/14/2014 12:09:41 02/19/2015 text/html Physical Exam/FemaleReported bypatient.ZEBKaleb choi is here for a Personal Health Appraisal. She describes her health status as fair. Patient's health is the same as last year.Notes:12/3/1 5 Pt. reports DX of tennis elbow- R arm- doing PT. Pt. feels she is hoarse which is causing issues with her singing (in choir) ? allergies or something else. Pt. has a film over her eyes in the morning- eye found nothing. Twister her R knee last week, is currently using heat and babying it . Pt. seeing Derm., had skin biopsies done- pre-cancerous- recheck scheduled. Pt. ok with recieving PCV 13 today if ok with YP.Risk Assessment and Lifestyle Change Counseling 65+ (Medicare)Reported bypatient.Coronary Artery Disease Risk Assessment:No Family history of coronary artery disease; No personal history of diabetes; No history of peripheral vascular disease, AAA, or carotid disease; No personal history of coronary artery disease Breast Cancer Risk Assessment:No family history of breast cancer; No history of breast cancer or dcis Colon Cancer Risk Assessment:No family history of colon polyps or cancer; No history of adenomatous colon polyps Lung Cancer Risk Assessment:Has used cigarettes(quit >20yo) Fracture Risk Assessment:No falls; Normal bone density; Has adequate calcium intake; Taking Vitamin D supplement Cognitive/Behaviora l Risk Assessment:No personal history of mental illness;Family history of mental illness Safety Risk Assessment:Has grab bars in bathroom; Has not had frequent falls; No evidence of abuse/neglect; Do you feel safe in your current relationship?YES Functional Status:Patient does not have trouble hearing the television or radio when others do not.; Patient does not have to strain or struggle to hear/understand conversations; Patient does not need help with preparing meals, transportation, shopping, taking medicine, managing finances, or other activities of daily living.; Patient does not have visual loss that interferes with daily activities; Does not live alone; Patient was not unsteady and did not take longer than 30 seconds during the timed get up and go test.; Pt. notes a film in the mornign over her eyes which decreases her vision. Has eye appt 03/2015 Diet:Counseled about eating a diet low in trans and saturated fats and high in fiber, fruits and vegetables; Counseled about appropriate calcium intake and good dietary sources of calcium.; Counseled about the importance of maintaining a positive calcium balance and taking 1000 iu Vitamin D daily. Exercise counseling:Discusse d the importance of daily physical activity; Discussed the importance of weight bearing exercise Safety:Counseled about avoiding excessive and unsafe alcohol intakea/VMG-Hyperte nsionReported bypatient.Duration: Chronic Control:Well-contro lled; Improved since last visit; BP usually /; BP Goal Less [id number]/90; Patient understands medications are to lower blood pressure Compliance:Complian t with medications; Compliant with diet; Compliant with exercise; Compliant with follow-up visits Barriers to CareNo identified barriers to care Self Care:Using home BP monitor weekly home BPs range (140/70) Context:No ischemic heart disease; No kidney disease; No history of CVA; No congestive heart failure; No history of transient ischemic attacks; No peripheral vascular disease; No history of diabetes Associated Symptoms:No chest pain; No shortness of breath; No edema; No fatigue; No palpitations; No decline in exercise capacity; No snoring Ability to Manage Self CareOn how confident the patient feels in ability to self manage condition the patient selects 10 with 10 being very confident and 1 being very low confidence; Patient feels very confident in ability to self manage condition for the past 1.5y about every 2-3 weeks, she feels like a film or fog over her vision which lasts 2 hours. once she got light flashes about a year ago but nothing like that since. She has had floaters in the past. No FH migraines. No weakness, numbness, tingling. It is usually in the morning. She sleeps well. Has seen eye doc multiple times for it and he has not been able to find any abnormalities. sx have been stable in frequency and severity for over 1.5y scratchy throat/hoarseness- this tends to happen in the fall/winter. - is taking decongestent and nasocort. Is also frequently singing w/ chorus Essence Rasmussen MD [address] [place] [address], [phone], [facility] 02/20/2015 14:30:36 08/19/2015 text/html a/VMG-Hypertensi onR eported bypatient.Duration: Chronic Control:Well-contro lled; Improved since last visit; BP usually /; BP Goal Less [id number]/90; Patient understands medications are to lower blood pressure Compliance:Complian t with medications; Compliant with diet; Compliant with exercise; Compliant with follow-up visits Barriers to CareNo identified barriers to care Self Care:Using home BP monitor weekly home BPs range (130'S/80'S) Context:No ischemic heart disease; No kidney disease; No history of CVA; No congestive heart failure; No history of transient ischemic attacks; No peripheral vascular disease; No history of diabetes Associated Symptoms:No chest pain; No shortness of breath; No edema; No fatigue; No palpitations; No decline in exercise capacity; No snoring Ability to Manage Self CareOn how confident the patient feels in ability to self manage condition the patient selects 10 with 10 being very confident and 1 being very low confidence; Patient feels very confident in ability to self manage condition reports is having loose stool x 2-3 days in a row every 1-1.5mo or so for over a year (started 06/3014). plans to start tracking it and monitoring diet to see what contributes to this. She takes probiotics or pepto-bismal prn which helps. When she has it her appetite is poor and she feels generrally not well. mom and sister both have IBS. Pt also had many IBS sx for years but was better for many years until last year. last colonoscopy was 2012. About a month ago, when she was doing her regular daily walking exercise she developed chest pressure for about a week. She was on an abx at the time, so she thought maybe it was exacerbating her GERD. no associated sx. No sx since then, even w/ exercise Essence Rasmussen MD [address] [place] [address], [phone], [facility] 08/20/2015 11:06:28 OBGyn Episode No OBEpisode recorded.
== END 2024-06-20 13:33 | disposition home or self-care (01) ==
LOC: HO.HOS 13:01
PROVIDERS: PCP Internal Medicine; Visit Provider Physician Assistant
DX: S80.02XA Contusion of left knee, initial encounter (principal)
CPT/HCPCS: 99203

== ENCOUNTER → 2024-06-20 13:00 | Outpatient (BNVA) | payer BC, MEDICARE, SELFPAY | PROVIDERS: PCP Internal Medicine; Visit Provider Physician Assistant ==

== ENCOUNTER 2024-06-27 10:54 | Outpatient (AMB) | payer MEDICARE, BC, SELFPAY ==
--- NOTE | 2024-06-27 10:59 | A.OFFVIS_ITS ---
Vital Signs 06/27/24 11:03 Height 5 ft 3 in Weight 184 lb BMI 32.6 Intake Visit Reasons: OV- left knee contusion, DOI 06/02/24 Intake Note: Harper is a 84 year old female who presents today for a evaluation of her left knee contusion , DOI 06/02/24. Patient reports she is doing better, she does notice that the bandage gets soaked quickly. Allergies No Known Allergies Allergy (Verified 06/27/24 11:04) HPI HPI OV- left knee contusion, DOI 06/02/24: Details: Ms. Jacob is an 84-year-old female who presents the office today status post left knee contusion that she sustained on 06/02/2024. She continues to have difficulty with the open wound on the anterior aspect of the left knee. She reports that there has been active drainage from the site but denies any purulence. She was on Augmentin but has recently finished the course. She does not report any worsening symptoms however the wound remains similar to her last evaluation on 06-20-24. [facility] Social History Alcohol intake: current Alcohol intake frequency: holidays/special occasions only Alcohol type: wine Patient Tobacco Use Status: Never used Tobacco Current occupational status: retired Review of Systems Const All systems reviewed & are unremarkable except as noted in HPI and below Physical Exam Vital Signs: BMI result Body Mass Index 32.6 Const General: cooperative, healthy appearing and no acute distress Resp Effort & Inspection: normal respiratory effort and able to speak in complete sentences Cardio Peripheral pulses: Peripheral pulses 2+ throughout Skin Lesions: no lesions Rashes: no rashes Extrem Other: Left knee: Moderate hematoma. Abrasion over the anterior aspect of the patella has a small area of necrotic tissue. No surrounding erythema.Full knee extension and flexion. NVI. Assessment & Plan Assessment & Plan (1) Contusion of knee, left: Code(s): S80.02XA - Contusion of left knee, initial encounter Category: Medical (2) Open wound of left knee: Code(s): S81.002A - Unspecified open wound, left knee, initial encounter Category: Medical Plan Ms. Jacob is an 84-year-old female who presents the office today status post left knee contusion that she sustained on 06/02/2024. She continues to have difficulty with the open wound on the anterior aspect of the left knee. She reports that there has been active drainage from the site but denies any purulence. She was on Augmentin but has recently finished the course. She does not report any worsening symptoms however the wound remains similar to her last evaluation on 06-20-24. All the office today Dr. Tello was available to see the patient with me in a collaborative treatment plan was created. She will be referred to Wound Care for additional treatment of the open wound on the anterior aspect of the knee. The hematoma will resolve on its own over time the patient is not experiencing any difficulty with range of motion. The wound was dressed in the office with a clean bandage. I instructed the patient that she should keep the area clean dry and intact. She may wash the area with soap and water but no soaking. There is no additional orthopedic intervention warranted at this time. She will follow-u p with wound care. Orders: Referrals Wound Care Referral S81.002A - Unspecified open wound, left knee, initial encounter Coding Level of Care Code Est Pt Level 3 (15863) Diagnoses Contusion of knee, left S80.02XA Open wound of left knee S81.002A
[2024-06-27 11:03] VITALS: BMI 32.6
== END 2024-06-27 11:15 | disposition home or self-care (01) ==
LOC: HO.HOS 10:54
PROVIDERS: PCP Internal Medicine; Visit Provider Physician Assistant
DX: S80.02XA Contusion of left knee, initial encounter (principal); S81.002A Unspecified open wound, left knee, initial encounter
CPT/HCPCS: 99213

== ENCOUNTER → 2024-06-27 10:54 | Outpatient (BNVA) | payer MEDICARE, BC, SELFPAY | PROVIDERS: PCP Internal Medicine; Visit Provider Physician Assistant | DX: S80.02XA Contusion of left knee, initial encounter (principal); S81.002A Unspecified open wound, left knee, initial encounter; X58.XXXA Exposure to other specified factors, initial encounter; Y93.9 Activity, unspecified; Y92.9 Unspecified place or not applicable; Y99.9 Unspecified external cause status | CPT/HCPCS: 99212 ==